=== PATIENT | female | born 1960 | race Caucasian/White ===

== ENCOUNTER 2021-03-21 09:33 | Inpatient (IN) | payer OTHER ==
[2021-03-21] MEDS ORDERED: Morphine 4 MG/ML VIAL ONE ×5 (09:52→21:13)
[2021-03-21] MEDS ORDERED: Ondansetron PF 4 MG/2 ML Vial ONE ×2 (09:52→16:12)
[2021-03-21 10:28] LABS: #Basophils 0.1 thou/uL (0.0-0.2); #Eosinphils 0.1 thou/uL (0.0-0.7); #Lymphocytes 2.1 thou/uL (1.20-3.40); #Monocytes 0.7 thou/uL (0.11-0.59); #Neutrophils 11.3 thou/uL (1.40-6.50); %Basophils 0.7 % (0.0-1.0); %Eosinophils 0.6 % (0.0-10.0); %Lymphocytes 14.9 % (21.0-51.0); %Neutrophils 78.9 % (42.0-75.0); Hemoglobin 15.7 g/dL (12.0-16.0); Mean Corpuscular HGB CONC 32.1 g/dL (32.0-36.0); Mean Corpuscular Volume 99.8 fL (78.0-98.0); Mean Platelet Volume 10.4 fL (7.4-10.4); Platelet Count 245 thou/uL (130-400); RBC Distribution Width 12.7 % (11.5-14.5); White Blood Cell (WBC) Count 14.3 thou/uL (4.8-10.8)
[2021-03-21 10:31] LABS: Actual Bicarbonate (HCO3v) 23 mEq/L (22-28); Analyzer IN Cardio ER; Base Excess -3.4 mEq/L (-2.0 to +3.0); Calcium, Ionized (venous) 1.19 mmol/L (1.16-1.32); Chloride (VBG) 101 mmol/L (98-106); Potassium (VBG) 4.11 mmol/L (3.70-5.30); Sodium 139.1 mmol/L (133-146); pH (venous) 7.33 (7.32-7.43)
[2021-03-21 10:56] LABS: ALT (SGPT) 21 U/L (8-55); AST (SGOT) 27 U/L (5-34); Albumin 4.6 g/dL (3.4-4.8); Alkaline Phosphatase 121 U/L (40-110); Anion Gap 19 mmol/L (10-20); BUN (Urea Nitrogen) 22 mg/dL (9.8-20.1); Bilirubin, Total 0.6 mg/dL (0.2-1.2); Calc. Creatinine Clearance 0 mL/min (70-130); Calcium 10.4 mg/dL (7.8-10.44); Carbon Dioxide 22 mmol/L (23-31); Chloride 101 mmol/L (98-107); Globulin 3.5 g/dL (2.4-3.5); Glucose 104 mg/dL (80-115); Potassium 4.6 mmol/L (3.5-5.1); Protein, Total 8.1 g/dL (5.8-8.1); Sodium 137 mmol/L (136-145)
[2021-03-21 11:21] LABS: Lipase 24 U/L (8-78)
[2021-03-21] MEDS ORDERED: Piperacillin/Tazobactam 3.375 GM VIAL ONE (14:19)
[2021-03-21] MEDS ORDERED: Iopamidol-370 76% 500 ML 1 ML ONE (14:51)
[2021-03-21 15:15] LABS: SARS-CoV-2 NAA Rapid Test Not Detected (NotDetected)
[2021-03-21] MEDS ORDERED: Fentanyl 100 MCG/2 ML VIAL ONE (15:44)
[2021-03-21] MEDS ORDERED: Fentanyl 250 MCG/5 ML VIAL ONE (15:49)
[2021-03-21] MEDS ORDERED: Ketamine 50 MG/ML (10ML VIAL) ONE (16:09)
[2021-03-21] MEDS ORDERED: PHENYLEPHRINE-NS 100 MCG/ML 10 ML SYRINGE ONE (16:12)
[2021-03-21] MEDS ORDERED: Dexamethasone 20 MG/5 ML VIAL ONE (16:12)
[2021-03-21] MEDS ORDERED: ePHEDrine Sulfate 50 MG/10 ML VIAL ONE (16:12)
[2021-03-21] MEDS ORDERED: Rocuronium Bromide 10 MG/ML (10ML VIAL) ONE (16:12)
[2021-03-21] MEDS ORDERED: Succinylcholine 200 MG/10 ml SYRINGE FS ONE (16:12)
[2021-03-21] MEDS ORDERED: PROPOFOL 200 MG/20 ML VIAL ONE (16:12)
[2021-03-21] MEDS ORDERED: Phenylephrine 10 MG/ML VIAL ONE (18:48)
[2021-03-21] MEDS ORDERED: Bupivacaine 0.25% HCL 30 ML VIAL ONE (18:54)
[2021-03-21] MEDS ORDERED: EPINEPHrine 1 MG/ML AMP ONE (18:54)
[2021-03-21] MEDS ORDERED: Ketorolac Tromethamine 30 MG/ML VIAL IVP PRN (19:43)
[2021-03-21] MEDS ORDERED: Promethazine HCl 25 MG/ML VIAL IM PRN (19:43)
[2021-03-21] MEDS ORDERED: diphenhydrAMINE 50 MG/ML VIAL IVP PRN (19:43)
[2021-03-21] MEDS ORDERED: fentaNYL Citrate/PF 2,000 MCG in Sodium Chloride 0.9% 60 ML IV PRN (19:43)
[2021-03-21] MEDS ORDERED: Ondansetron HCl/PF 4 MG/2 ML Vial IVP PRN (19:43)
[2021-03-21] MEDS ORDERED: Zolpidem Tartrate 5 MG TAB PO PRN (19:43)
[2021-03-21] MEDS ORDERED: Naloxone HCl 0.4 mg/ml Vial IV PRN (19:43)
[2021-03-21] MEDS ORDERED: Promethazine HCl 25 MG/ML VIAL SLOW IVP PRN (19:43)
[2021-03-21] MEDS ORDERED: diphenhydrAMINE 50 MG/ML VIAL IM PRN (19:43)
[2021-03-21] MEDS ORDERED: diphenhydrAMINE 25 MG CAP PO PRN (19:43)
[2021-03-21] MEDS ORDERED: Communication Order-Pharmacy FS SCH (19:45)
[2021-03-21] MEDS ORDERED: SUGAMMADEX SODIUM 200 MG/2 ML VIAL ONE (19:46)
[2021-03-21] MEDS ORDERED: Albumin 5% 500 ML ONE (20:17)
[2021-03-21] MEDS ORDERED: Morphine 4 MG/ML VIAL SLOW IVP PRN (20:26)
[2021-03-21] MEDS ORDERED: Morphine 2 MG/ML VIAL SLOW IVP PRN (20:26)
[2021-03-21] MEDS ORDERED: Ondansetron PF 4 MG/2 ML Vial IVP PRN (20:26)
[2021-03-21] MEDS ORDERED: Fentanyl CADD 100 ML ONE (20:49)
[2021-03-21] MEDS: D5 1/2 NS w/20 mEq KCL 1,000 ML IV SCH (20:59)
[2021-03-21] MEDS ORDERED: Fentanyl 100 MCG/2 ML VIAL SLOW IVP PRN (21:34)
[2021-03-21] MEDS ORDERED: Fentanyl 100 MCG/2 ML VIAL SLOW IVP SCH (21:45)
[2021-03-21] MEDS: Famotidine/PF 20 mg/2ml Vial SLOW IVP SCH (21:52)
[2021-03-21] MEDS: Enoxaparin Sodium 40 MG/0.4 ML SYRINGE SC SCH (21:52)
[2021-03-22] MEDS: Ondansetron PF 4 MG/2 ML Vial IVP PRN (01:28)
[2021-03-22] MEDS: Promethazine HCl 25 MG/ML VIAL IM PRN ×2 (04:57→10:08)
[2021-03-22] MEDS: D5 1/2 NS w/20 mEq KCL 1,000 ML IV SCH (04:57)
[2021-03-22 05:07] LABS: Anion Gap 17 mmol/L (10-20); BUN (Urea Nitrogen) 26 mg/dL (9.8-20.1); Calc. Creatinine Clearance 40 mL/min (70-130); Calcium 7.9 mg/dL (7.8-10.44); Carbon Dioxide 17 mmol/L (23-31); Chloride 106 mmol/L (98-107); Glucose 254 mg/dL (80-115); Potassium 4.8 mmol/L (3.5-5.1); Sodium 135 mmol/L (136-145)
[2021-03-22 05:19] LABS: Band 48 % (5-11); Hemoglobin 12.6 g/dL (12.0-16.0); Hypochromia SLIGHT = 6-15 cells (100X) (0-5/hpf); Lymphocytes 4 % (21-51); MDiff Complete? YES; Mean Corpuscular HGB CONC 31.7 g/dL (32.0-36.0); Mean Platelet Volume 10.5 fL (7.4-10.4); Monocytes 6 % (0-10); Neutrophil 42 % (42-75); Platelet Count 193 thou/uL (130-400); Platelet Morphology Comment Appears Adequate; RBC Distribution Width 12.7 % (11.5-14.5); Red Blood Cell (RBC) Count 3.94 mill/uL (4.20-5.40); Reflex for Review?? YES; White Blood Cell (WBC) Count 16.8 thou/uL (4.8-10.8)
[2021-03-22] MEDS ORDERED: Sodium Chloride 0.9% 1,000 ML IV SCH (07:00)
[2021-03-22] MEDS: Sodium Chloride 0.45% 1,000 ML IV SCH ×3 (09:25→20:34)
[2021-03-22] MEDS: Ketorolac Tromethamine 30 MG/ML VIAL IVP PRN ×2 (10:07→20:25)
[2021-03-22] MEDS: Famotidine/PF 20 mg/2ml Vial SLOW IVP SCH ×2 (10:08→20:26)
[2021-03-22] MEDS: Enoxaparin Sodium 40 MG/0.4 ML SYRINGE SC SCH (20:25)
[2021-03-23] MEDS: Sodium Chloride 0.45% 1,000 ML IV SCH (04:04)
[2021-03-23 05:24] LABS: Actual Bicarbonate (HCO3a) 14.2 mEq/L (22-28); CO2 Tension 33.6 mmHg (35.0-45.0); Calcium, Ionized (arterial) 0.88 mmol/L (1.12-1.30); Carboxyhemoglobin (COHb) 0.6 gm% (0.0-3.0); Hemoglobin (Hb) 11.9 g/dL (12.0-16.0); O2 Tension (PaO2), arterial 72.3 mmHg (> 80.0); Potassium - ABG Lab 5.38 mmol/L (3.70-5.30)
[2021-03-23 05:26] LABS: Puncture Site RBA; pH, Arterial 7.25 (7.35-7.45)
[2021-03-23 05:27] LABS: Hemoglobin 11.2 g/dL (12.0-16.0); Mean Corpuscular HGB CONC 31.6 g/dL (32.0-36.0); Mean Corpuscular Hemoglobin 32.2 pg (27.0-31.0); Mean Platelet Volume 10.9 fL (7.4-10.4); Platelet Count 177 thou/uL (130-400); RBC Distribution Width 12.9 % (11.5-14.5); Red Blood Cell (RBC) Count 3.47 mill/uL (4.20-5.40); White Blood Cell (WBC) Count 16.4 thou/uL (4.8-10.8)
[2021-03-23 05:54] LABS: Band 47 % (5-11); Large Platelets SLIGHT; Lymphocytes 8 % (21-51); MDiff Complete? YES; Metamyelocyte 3 % (0-0); Monocytes 2 % (0-10); Neutrophil 40 % (42-75); Platelet Morphology Comment Appears Adequate
[2021-03-23 05:55] LABS: Anion Gap 18 mmol/L (10-20); BUN (Urea Nitrogen) 42 mg/dL (9.8-20.1); Calc. Creatinine Clearance 20 mL/min (70-130); Calcium 6.4 mg/dL (7.8-10.44); Carbon Dioxide 15 mmol/L (23-31); Chloride 106 mmol/L (98-107); Glucose 140 mg/dL (80-115); Potassium 5.5 mmol/L (3.5-5.1); Sodium 133 mmol/L (136-145)
[2021-03-23] MEDS ORDERED: Lactated Ringer's 1,000 ML IV SCH ×3 (06:15→10:00)
[2021-03-23] MEDS ORDERED: Racepinephrine 2.25% 0.5 ML NEB NEB SCH (08:45)
[2021-03-23] MEDS ORDERED: Albumin 5% 0 ML ONE (08:51)
[2021-03-23] MEDS ORDERED: Lactated Ringer's 500 ML IV SCH ×2 (09:00→09:30)
[2021-03-23] MEDS ORDERED: Potassium Phosphate 15 MMOL in Sodium Chloride 0.9% 250 ML 250 ML IVPB PRN (09:18)
[2021-03-23] MEDS ORDERED: Magnesium 2 GM/50 ML 2 GM in Premix Bag 1 BAG IVPB PRN (09:18)
[2021-03-23] MEDS ORDERED: Electrolyte Replacement Protocol 1 EACH FS SCH (09:30)
[2021-03-23] MEDS ORDERED: Dextrose 5%-Lactated Ringers 1,000 ML IV SCH (09:30)
[2021-03-23] MEDS: Famotidine/PF 20 mg/2ml Vial SLOW IVP SCH (09:50)
[2021-03-23] MEDS: Piperacillin/Tazobactam 3.375 GM in Sodium Chloride 0.9% 100 ML IVPB SCH ×2 (09:53→17:08)
[2021-03-23] MEDS: Meropenem 500 MG in Sodium Chloride 0.9% 100 ML IVPB SCH ×2 (10:24→21:05)
[2021-03-23] MEDS: Norepinephrine 16 MG in Dextrose 5% in Water 234 ML IVPB SCH (10:45)
[2021-03-23 11:17] LABS: Troponin I 0.081 ng/mL (< 0.028)
[2021-03-23 11:27] LABS: Chloride 102 mmol/L (98-107); Potassium 5.3 mmol/L (3.5-5.1); Sodium 127 mmol/L (136-145)
[2021-03-23 11:28] LABS: Calcium 6.4 mg/dL (7.8-10.44); Glucose 138 mg/dL (80-115)
[2021-03-23 11:30] LABS: Anion Gap 15 mmol/L (10-20); Carbon Dioxide 15 mmol/L (23-31)
[2021-03-23 11:32] LABS: Calc. Creatinine Clearance 20 mL/min (70-130)
[2021-03-23 11:33] LABS: BUN (Urea Nitrogen) 41 mg/dL (9.8-20.1)
[2021-03-23] MEDS ORDERED: Morphine 4 MG/ML VIAL ONE (12:05)
[2021-03-23] MEDS ORDERED: Morphine 4 MG/ML VIAL SLOW IVP PRN (12:19)
[2021-03-23] MEDS: Ondansetron PF 4 MG/2 ML Vial IVP PRN (12:27)
[2021-03-23] MEDS ORDERED: Calcium Chloride 1 GM/10 ML Abboject SYRINGE ONE (12:47)
[2021-03-23] MEDS: Racepinephrine 2.25% 0.5 ML NEB NEB SCH ×2 (12:48→18:15)
[2021-03-23] MEDS ORDERED: Magnesium 2 GM/50 ML 2 GM in Premix Bag 1 BAG IVPB SCH (13:45)
[2021-03-23 14:06] LABS: Bilirubin Moderate (Negative); Blood, Urine Large (Negative); Glucose, Urine (Dipstick) 100 mg/dL (Negative); Ketone, Urine Trace mg/dL (Negative); Leukocyte Trace (Negative); Nitrite Negative (Negative); Protein, Urine (Dipstick) > or equal to 300 mg/dL (Neg-Trace)
[2021-03-23 14:12] LABS: Clarity Turbid (Clear)
[2021-03-23 14:14] LABS: Specific Gravity, Urine 1.031 (1.002-1.036)
[2021-03-23 14:17] LABS: RBC/HPF Greater than 50 HPF (0-3)
[2021-03-23 14:18] LABS: Bacteria/HPF 1+ HPF (None Seen)
[2021-03-23 14:19] LABS: Urine Culture Reflex No No
[2021-03-23 14:20] LABS: Creatinine, Urine 125.43 mg/dL (47-110)
[2021-03-23] MEDS: Sodium Bicarbonate 150 MEQ in Dextrose 5% in Water 1,000 ML IV SCH ×2 (14:39→18:32)
[2021-03-23 18:20] LABS: Troponin I 0.178 ng/mL (< 0.028)
[2021-03-23 19:07] LABS: Albumin 3.4 g/dL (3.4-4.8); Anion Gap 17 mmol/L (10-20); BUN (Urea Nitrogen) 48 mg/dL (9.8-20.1); BUN/Creatinine Ratio 10.71; CK (CPK) 3055 U/L (29-168); Calc. Creatinine Clearance 18 mL/min (70-130); Calcium 6.9 mg/dL (7.8-10.44); Carbon Dioxide 16 mmol/L (23-31); Chloride 104 mmol/L (98-107); Glucose 189 mg/dL (80-115); Phosphorus 4.4 mg/dL (2.3-4.7); Potassium 5.3 mmol/L (3.5-5.1); Sodium 132 mmol/L (136-145)
[2021-03-23] MEDS ORDERED: Furosemide 100 MG/10 ML VIAL SLOW IVP SCH (19:09)
[2021-03-23] MEDS ORDERED: Sodium Bicarbonate 150 MEQ in Dextrose 5% in Water 1,000 ML IV SCH (19:10)
[2021-03-23] MEDS: Morphine 4 MG/ML VIAL SLOW IVP PRN ×3 (19:36→23:12)
[2021-03-23] MEDS ORDERED: Calcium Gluconate 13.8 MEQ in Sodium Chloride 0.9% 250 ML 250 ML IVPB SCH (20:00)
[2021-03-23] MEDS ORDERED: Lorazepam 2 MG/ML VIAL SLOW IVP PRN (20:26)
[2021-03-23] MEDS: Enoxaparin Sodium 30 MG/0.3 ML SYRINGE SC SCH (21:29)
[2021-03-23 22:43] LABS: Anion Gap 17 mmol/L (10-20); BUN (Urea Nitrogen) 48 mg/dL (9.8-20.1); Calc. Creatinine Clearance 18 mL/min (70-130); Calcium 7.1 mg/dL (7.8-10.44); Carbon Dioxide 21 mmol/L (23-31); Chloride 100 mmol/L (98-107); Glucose 182 mg/dL (80-115); Potassium 4.3 mmol/L (3.5-5.1); Sodium 134 mmol/L (136-145)
[2021-03-24] MEDS: Piperacillin/Tazobactam 3.375 GM in Sodium Chloride 0.9% 100 ML IVPB SCH ×5 (00:14→23:45)
[2021-03-24] MEDS: Morphine 4 MG/ML VIAL SLOW IVP PRN ×2 (01:27→03:50)
[2021-03-24 01:58] LABS: Troponin I 0.222 ng/mL (< 0.028)
[2021-03-24 04:26] LABS: CK (CPK) 2716 U/L (29-168); Phosphorus 3.8 mg/dL (2.3-4.7)
[2021-03-24 04:27] LABS: Anion Gap 16 mmol/L (10-20); BUN (Urea Nitrogen) 46 mg/dL (9.8-20.1); Calc. Creatinine Clearance 17 mL/min (70-130); Calcium 6.6 mg/dL (7.8-10.44); Carbon Dioxide 25 mmol/L (23-31); Chloride 95 mmol/L (98-107); Glucose 179 mg/dL (80-115); Magnesium 1.6 mg/dL (1.6-2.6); Potassium 4.2 mmol/L (3.5-5.1); Sodium 132 mmol/L (136-145)
[2021-03-24 04:30] LABS: Band 62 % (5-11); Hemoglobin 9.7 g/dL (12.0-16.0); Hypochromia SLIGHT = 6-15 cells (100X) (0-5/hpf); Lymphocytes 8 % (21-51); MDiff Complete? YES; Mean Corpuscular HGB CONC 32.5 g/dL (32.0-36.0); Mean Corpuscular Hemoglobin 32.2 pg (27.0-31.0); Mean Corpuscular Volume 99.1 fL (78.0-98.0); Mean Platelet Volume 10.7 fL (7.4-10.4); Monocytes 4 % (0-10); Neutrophil 26 % (42-75); Platelet Count 158 thou/uL (130-400); Platelet Morphology Comment Appears Adequate; RBC Distribution Width 12.6 % (11.5-14.5); Red Blood Cell (RBC) Count 3.02 mill/uL (4.20-5.40); White Blood Cell (WBC) Count 14.1 thou/uL (4.8-10.8)
[2021-03-24] MEDS ORDERED: Furosemide 100 MG/10 ML VIAL SLOW IVP SCH (04:30)
[2021-03-24 06:48] LABS: Actual Bicarbonate (HCO3a) 23.1 mEq/L (22-28); CO2 Tension 40.6 mmHg (35.0-45.0); Calcium, Ionized (arterial) 0.81 mmol/L (1.12-1.30); Carboxyhemoglobin (COHb) 0.3 gm% (0.0-3.0); Hemoglobin (Hb) 10.9 g/dL (12.0-16.0); O2 Tension (PaO2), arterial 96.9 mmHg (> 80.0); Potassium - ABG Lab 4.11 mmol/L (3.70-5.30); Puncture Site RBA; pH, Arterial 7.37 (7.35-7.45)
[2021-03-24] MEDS: Racepinephrine 2.25% 0.5 ML NEB NEB SCH (06:52)
[2021-03-24] MEDS ORDERED: Magnesium 2 GM/50 ML 2 GM in Premix Bag 1 BAG IVPB SCH (07:00)
[2021-03-24] MEDS ORDERED: Sodium Bicarbonate 150 MEQ in Dextrose 5% in Water 1,000 ML IV SCH (07:45)
[2021-03-24] MEDS ORDERED: Calcium Gluconate 13.8 MEQ in Sodium Chloride 0.9% 250 ML 250 ML IVPB SCH (08:00)
[2021-03-24] MEDS: Famotidine/PF 20 mg/2ml Vial SLOW IVP SCH (08:19)
[2021-03-24] MEDS ORDERED: Vancomycin 1 GM in Premix Bag 1 BAG IVPB SCH ×2 (09:00→10:00)
[2021-03-24] MEDS ORDERED: Famotidine/PF 20 mg/2ml Vial SLOW IVP SCH (09:00)
[2021-03-24] MEDS ORDERED: Sodium Chloride 0.45% 500 ML IV SCH (09:45)
[2021-03-24] MEDS ORDERED: HOLD VANCOMYCIN FOR LEVEL >20 FS SCH (10:00)
[2021-03-24] MEDS ORDERED: Vancomycin HCl 750 MG in Sodium Chloride 0.9% 250 ML 250 ML IVPB SCH (10:00)
[2021-03-24] MEDS ORDERED: Vancomycin HCl 500 MG in Sodium Chloride 0.9% 100 ML IVPB SCH (10:00)
[2021-03-24] MEDS ORDERED: VANCOMYCIN 1.25 GM/250 ML BAG 1.25 GM in Premix Bag 1 BAG IVPB SCH (10:00)
[2021-03-24] MEDS: Meropenem 500 MG in Sodium Chloride 0.9% 100 ML IVPB SCH ×2 (10:11→21:58)
[2021-03-24] MEDS ORDERED: Furosemide 40 MG/4 ML VIAL ONE (11:46)
[2021-03-24] MEDS: Norepinephrine 16 MG in Dextrose 5% in Water 234 ML IVPB SCH (14:43)
[2021-03-24 14:56] LABS: Albumin 2.8 g/dL (3.4-4.8); Anion Gap 19 mmol/L (10-20); BUN (Urea Nitrogen) 52 mg/dL (9.8-20.1); BUN/Creatinine Ratio 10.44; Calc. Creatinine Clearance 16 mL/min (70-130); Calcium 6.7 mg/dL (7.8-10.44); Carbon Dioxide 25 mmol/L (23-31); Chloride 93 mmol/L (98-107); Glucose 155 mg/dL (80-115); Phosphorus 4.3 mg/dL (2.3-4.7); Potassium 4.3 mmol/L (3.5-5.1); Sodium 133 mmol/L (136-145)
[2021-03-24 20:56] LABS: Albumin 2.9 g/dL (3.4-4.8); Anion Gap 21 mmol/L (10-20); BUN (Urea Nitrogen) 54 mg/dL (9.8-20.1); BUN/Creatinine Ratio 10.17; Calc. Creatinine Clearance 15 mL/min (70-130); Calcium 6.6 mg/dL (7.8-10.44); Carbon Dioxide 23 mmol/L (23-31); Chloride 94 mmol/L (98-107); Glucose 142 mg/dL (80-115); Phosphorus 4.6 mg/dL (2.3-4.7); Potassium 4.6 mmol/L (3.5-5.1); Sodium 133 mmol/L (136-145)
[2021-03-24] MEDS: Enoxaparin Sodium 30 MG/0.3 ML SYRINGE SC SCH (21:57)
[2021-03-24] MEDS: Albumin 25% 25 GM/100 ML BOT IVPB SCH (23:46)
[2021-03-25] MEDS: Norepinephrine 16 MG in Dextrose 5% in Water 234 ML IVPB SCH (05:08)
[2021-03-25] MEDS: Piperacillin/Tazobactam 3.375 GM in Sodium Chloride 0.9% 100 ML IVPB SCH (05:09)
[2021-03-25] MEDS: Albumin 25% 25 GM/100 ML BOT IVPB SCH ×2 (05:09→11:18)
[2021-03-25 05:43] LABS: Anion Gap 20 mmol/L (10-20); BUN (Urea Nitrogen) 57 mg/dL (9.8-20.1); CK (CPK) 1142 U/L (29-168); Calc. Creatinine Clearance 14 mL/min (70-130); Calcium 6.6 mg/dL (7.8-10.44); Carbon Dioxide 25 mmol/L (23-31); Chloride 93 mmol/L (98-107); Glucose 139 mg/dL (80-115); Magnesium 2.1 mg/dL (1.6-2.6); Phosphorus 5.1 mg/dL (2.3-4.7); Potassium 4.4 mmol/L (3.5-5.1); Sodium 134 mmol/L (136-145)
[2021-03-25 06:35] LABS: Actual Bicarbonate (HCO3a) 23.3 mEq/L (22-28); Base Excess (BEa) -1.7 mEq/L (-2.0 to +3.0); CO2 Tension 40.8 mmHg (35.0-45.0); Calcium, Ionized (arterial) 0.79 mmol/L (1.12-1.30); Carboxyhemoglobin (COHb) 0.3 gm% (0.0-3.0); Hemoglobin (Hb) 9.5 g/dL (12.0-16.0); Potassium - ABG Lab 4.38 mmol/L (3.70-5.30); pH, Arterial 7.38 (7.35-7.45)
[2021-03-25 06:50] LABS: O2 Tension (PaO2), arterial 79.3 mmHg (> 80.0); Puncture Site RBA
[2021-03-25] MEDS: Famotidine/PF 20 mg/2ml Vial SLOW IVP SCH (09:19)
[2021-03-25 09:43] LABS: Vancomycin, Random 10.6 ug/mL (See Comment)
[2021-03-25] MEDS: Lactated Ringer's 1,000 ML IV SCH ×3 (10:56→19:45)
[2021-03-25] MEDS: Meropenem 500 MG in Sodium Chloride 0.9% 100 ML IVPB SCH ×2 (11:07→20:38)
[2021-03-25 11:53] LABS: Mean Corpuscular HGB CONC 32.7 g/dL (32.0-36.0); Mean Corpuscular Hemoglobin 31.9 pg (27.0-31.0); Mean Corpuscular Volume 97.6 fL (78.0-98.0); Platelet Count 171 thou/uL (130-400); RBC Distribution Width 12.5 % (11.5-14.5); Red Blood Cell (RBC) Count 2.83 mill/uL (4.20-5.40); White Blood Cell (WBC) Count 12.6 thou/uL (4.8-10.8)
[2021-03-25 12:26] LABS: Band 35 % (5-11); MDiff Complete? YES; Metamyelocyte 1 % (0-0); Monocytes 7 % (0-10); Myelocyte 1 % (0-0); Neutrophil 56 % (42-75); Platelet Morphology Comment Appears Adequate; Polychromasia SLIGHT = 2-3 cells (100X) (0-2/hpf); Reflex for Review?? NO; Vacuoles MODERATE
[2021-03-25] MEDS ORDERED: VANCOMYCIN 1.25 GM/250 ML BAG 1.25 GM in Premix Bag 1 BAG IVPB SCH (13:00)
[2021-03-25] MEDS: Morphine 4 MG/ML VIAL SLOW IVP PRN ×3 (14:02→23:35)
[2021-03-25] MEDS: Piperacillin/Tazobactam 2.25 GM in Sodium Chloride 0.9% 100 ML IVPB SCH ×2 (14:03→21:48)
[2021-03-25] MEDS: Budesonide 0.5 MG/2 ML NEB NEB SCH (18:21)
[2021-03-25] MEDS: Enoxaparin Sodium 30 MG/0.3 ML SYRINGE SC SCH (20:39)
[2021-03-26] MEDS: Norepinephrine 16 MG in Dextrose 5% in Water 234 ML IVPB SCH (00:43)
[2021-03-26] MEDS: Lactated Ringer's 1,000 ML IV SCH ×4 (00:50→17:00)
[2021-03-26] MEDS: Morphine 4 MG/ML VIAL SLOW IVP PRN ×6 (03:15→20:00)
[2021-03-26 04:13] LABS: Anion Gap 23 mmol/L (10-20); BUN (Urea Nitrogen) 55 mg/dL (9.8-20.1); CK (CPK) 476 U/L (29-168); Calc. Creatinine Clearance 16 mL/min (70-130); Calcium 7.7 mg/dL (7.8-10.44); Carbon Dioxide 26 mmol/L (23-31); Chloride 96 mmol/L (98-107); Glucose 120 mg/dL (80-115); Potassium 3.7 mmol/L (3.5-5.1); Sodium 141 mmol/L (136-145)
[2021-03-26 04:47] LABS: Band 41 % (5-11); Eosinophils 2 % (0-10); Hemoglobin 9.3 g/dL (12.0-16.0); Lymphocytes 5 % (21-51); MDiff Complete? YES; Mean Corpuscular HGB CONC 33.5 g/dL (32.0-36.0); Mean Corpuscular Hemoglobin 32.7 pg (27.0-31.0); Mean Corpuscular Volume 97.6 fL (78.0-98.0); Mean Platelet Volume 11.3 fL (7.4-10.4); Monocytes 4 % (0-10); Neutrophil 48 % (42-75); Nucleated RBC 1 % (0); Platelet Count 160 thou/uL (130-400); RBC Distribution Width 12.8 % (11.5-14.5); Red Blood Cell (RBC) Count 2.84 mill/uL (4.20-5.40); White Blood Cell (WBC) Count 15.4 thou/uL (4.8-10.8)
[2021-03-26] MEDS: Piperacillin/Tazobactam 2.25 GM in Sodium Chloride 0.9% 100 ML IVPB SCH (05:12)
[2021-03-26] MEDS: Budesonide 0.5 MG/2 ML NEB NEB SCH ×2 (07:22→18:36)
[2021-03-26] MEDS: Famotidine/PF 20 mg/2ml Vial SLOW IVP SCH (07:46)
[2021-03-26] MEDS: Meropenem 500 MG in Sodium Chloride 0.9% 100 ML IVPB SCH ×2 (11:15→20:55)
[2021-03-26] MEDS ORDERED: VANCOMYCIN 1.25 GM/250 ML BAG 1.25 GM in Premix Bag 1 BAG IVPB SCH (13:00)
[2021-03-26 15:30] LABS: Albumin 3.2 g/dL (3.4-4.8); Anion Gap 22 mmol/L (10-20); BUN (Urea Nitrogen) 54 mg/dL (9.8-20.1); BUN/Creatinine Ratio 12.59; Calc. Creatinine Clearance 19 mL/min (70-130); Calcium 8.1 mg/dL (7.8-10.44); Carbon Dioxide 27 mmol/L (23-31); Chloride 96 mmol/L (98-107); Glucose 101 mg/dL (80-115); Phosphorus 6.8 mg/dL (2.3-4.7); Potassium 3.7 mmol/L (3.5-5.1); Sodium 141 mmol/L (136-145)
[2021-03-26] MEDS: Mometasone 200 MCG/Formoterol 5 MCG 120 PUFF INHALER INH SCH (18:38)
[2021-03-26] MEDS: Enoxaparin Sodium 30 MG/0.3 ML SYRINGE SC SCH (20:55)
[2021-03-26] MEDS: methylPREDNISolone Sod Succ 40 MG VIAL IVP SCH (20:55)
[2021-03-27] MEDS: Morphine 4 MG/ML VIAL SLOW IVP PRN ×3 (04:15→22:05)
[2021-03-27 04:55] LABS: Phosphorus 7.1 mg/dL (2.3-4.7)
[2021-03-27 05:00] LABS: Anion Gap 23 mmol/L (10-20); BUN (Urea Nitrogen) 56 mg/dL (9.8-20.1); CK (CPK) 154 U/L (29-168); Calc. Creatinine Clearance 22 mL/min (70-130); Calcium 8.5 mg/dL (7.8-10.44); Carbon Dioxide 26 mmol/L (23-31); Chloride 97 mmol/L (98-107); Glucose 122 mg/dL (80-115); Magnesium 1.8 mg/dL (1.6-2.6); Potassium 3.9 mmol/L (3.5-5.1); Sodium 142 mmol/L (136-145)
[2021-03-27 05:04] LABS: Band 48 % (5-11); Hemoglobin 9.2 g/dL (12.0-16.0); Hypochromia SLIGHT = 6-15 cells (100X) (0-5/hpf); Lymphocytes 2 % (21-51); MDiff Complete? YES; Mean Corpuscular HGB CONC 32.3 g/dL (32.0-36.0); Mean Corpuscular Hemoglobin 31.7 pg (27.0-31.0); Mean Corpuscular Volume 97.9 fL (78.0-98.0); Mean Platelet Volume 11.7 fL (7.4-10.4); Monocytes 3 % (0-10); Neutrophil 46 % (42-75); Platelet Count 170 thou/uL (130-400); Platelet Morphology Comment Appears Adequate; RBC Distribution Width 12.8 % (11.5-14.5); Red Blood Cell (RBC) Count 2.89 mill/uL (4.20-5.40); White Blood Cell (WBC) Count 20.7 thou/uL (4.8-10.8)
[2021-03-27] MEDS: Lactated Ringer's 1,000 ML IV SCH ×3 (06:04→20:53)
[2021-03-27] MEDS: Budesonide 0.5 MG/2 ML NEB NEB SCH ×2 (07:16→18:29)
[2021-03-27] MEDS: Mometasone 200 MCG/Formoterol 5 MCG 120 PUFF INHALER INH SCH ×2 (07:17→18:30)
[2021-03-27] MEDS: Famotidine/PF 20 mg/2ml Vial SLOW IVP SCH (09:04)
[2021-03-27] MEDS: Meropenem 500 MG in Sodium Chloride 0.9% 100 ML IVPB SCH ×2 (09:05→20:54)
[2021-03-27] MEDS: methylPREDNISolone Sod Succ 40 MG VIAL IVP SCH ×2 (09:05→20:55)
[2021-03-27] MEDS ORDERED: Iopamidol 370 76% 50 ML VIAL FS ONE (13:42)
[2021-03-27] MEDS: Lidocaine 5% Patch TD SCH (16:52)
[2021-03-27] MEDS: Enoxaparin Sodium 30 MG/0.3 ML SYRINGE SC SCH (20:54)
[2021-03-27] MEDS ORDERED: Lorazepam 2 MG/ML VIAL SLOW IVP SCH (22:30)
[2021-03-28] MEDS: Lactated Ringer's 1,000 ML IV SCH ×2 (02:07→09:50)
[2021-03-28 05:03] LABS: Anion Gap 19 mmol/L (10-20); BUN (Urea Nitrogen) 64 mg/dL (9.8-20.1); CK (CPK) 76 U/L (29-168); Calc. Creatinine Clearance 31 mL/min (70-130); Calcium 9.1 mg/dL (7.8-10.44); Carbon Dioxide 28 mmol/L (23-31); Chloride 100 mmol/L (98-107); Glucose 158 mg/dL (80-115); Potassium 3.4 mmol/L (3.5-5.1); Sodium 144 mmol/L (136-145)
[2021-03-28 05:09] LABS: Hemoglobin 9.5 g/dL (12.0-16.0); Mean Corpuscular HGB CONC 33.5 g/dL (32.0-36.0); Mean Corpuscular Hemoglobin 33.3 pg (27.0-31.0); Mean Corpuscular Volume 99.2 fL (78.0-98.0); Mean Platelet Volume 11.6 fL (7.4-10.4); Platelet Count 187 thou/uL (130-400); RBC Distribution Width 12.8 % (11.5-14.5); Red Blood Cell (RBC) Count 2.85 mill/uL (4.20-5.40); White Blood Cell (WBC) Count 21.2 thou/uL (4.8-10.8)
[2021-03-28 05:17] LABS: Band 1 % (5-11); Eosinophils 1 % (0-10); MDiff Complete? YES; Metamyelocyte 2 % (0-0); Monocytes 1 % (0-10); Neutrophil 95 % (42-75); Nucleated RBC 1 % (0); Platelet Morphology Comment Appears Adequate
[2021-03-28] MEDS: Transdermal Patch Removal TOP SCH (06:12)
[2021-03-28] MEDS: Mometasone 200 MCG/Formoterol 5 MCG 120 PUFF INHALER INH SCH ×2 (07:09→21:48)
[2021-03-28] MEDS: Budesonide 0.5 MG/2 ML NEB NEB SCH ×3 (07:09→23:52)
[2021-03-28] MEDS ORDERED: Labetalol HCl 100 MG/20 ML VIAL SLOW IVP PRN (08:27)
[2021-03-28] MEDS ORDERED: methylPREDNISolone Sod Succ 40 MG VIAL IVP SCH (09:00)
[2021-03-28] MEDS: Famotidine/PF 20 mg/2ml Vial SLOW IVP SCH (09:47)
[2021-03-28] MEDS: Meropenem 500 MG in Sodium Chloride 0.9% 100 ML IVPB SCH ×2 (09:47→21:06)
[2021-03-28 11:02] LABS: Phosphorus 5.2 mg/dL (2.3-4.7)
[2021-03-28] MEDS: hydrALAZINE 20 MG/ML VIAL SLOW IVP PRN (11:15)
[2021-03-28] MEDS ORDERED: Albuterol Sulfate 2.5 mg/3 ml Neb NEB PRN (12:10)
[2021-03-28] MEDS ORDERED: Magnesium 2 GM/50 ML 2 GM in Premix Bag 1 BAG IVPB SCH (12:15)
[2021-03-28] MEDS: Morphine 4 MG/ML VIAL SLOW IVP PRN ×2 (12:55→22:11)
[2021-03-28] MEDS ORDERED: Potassium Chloride 20 MEQ in Premix Bag 1 BAG IVPB SCH (13:15)
[2021-03-28 13:16] LABS: Magnesium 1.7 mg/dL (1.6-2.6); Phosphorus 4.8 mg/dL (2.3-4.7)
[2021-03-28] MEDS ORDERED: Furosemide 40 MG/4 ML VIAL IVP SCH (14:30)
[2021-03-28] MEDS: methylPREDNISolone Sod Succ 40 MG VIAL IVP SCH ×2 (15:06→21:06)
[2021-03-28] MEDS ORDERED: Lactated Ringer's 1,000 ML IV SCH (15:44)
[2021-03-28] MEDS: Lidocaine 5% Patch TD SCH (17:04)
[2021-03-28] MEDS: Enoxaparin Sodium 30 MG/0.3 ML SYRINGE SC SCH (21:06)
[2021-03-29 04:17] LABS: Anion Gap 16 mmol/L (10-20); BUN (Urea Nitrogen) 66 mg/dL (9.8-20.1); Calc. Creatinine Clearance 43 mL/min (70-130); Calcium 9.1 mg/dL (7.8-10.44); Carbon Dioxide 33 mmol/L (23-31); Chloride 103 mmol/L (98-107); Glucose 184 mg/dL (80-115); Potassium 3.3 mmol/L (3.5-5.1); Sodium 149 mmol/L (136-145)
[2021-03-29 04:23] LABS: Phosphorus 3.3 mg/dL (2.3-4.7)
[2021-03-29 04:34] LABS: Band 6 % (5-11); Hemoglobin 9.8 g/dL (12.0-16.0); Lymphocytes 2 % (21-51); MDiff Complete? YES; Mean Corpuscular HGB CONC 32.6 g/dL (32.0-36.0); Mean Corpuscular Hemoglobin 32.1 pg (27.0-31.0); Mean Corpuscular Volume 98.4 fL (78.0-98.0); Mean Platelet Volume 11.4 fL (7.4-10.4); Monocytes 8 % (0-10); Neutrophil 84 % (42-75); Platelet Count 202 thou/uL (130-400); RBC Distribution Width 12.9 % (11.5-14.5); Red Blood Cell (RBC) Count 3.05 mill/uL (4.20-5.40); White Blood Cell (WBC) Count 21.8 thou/uL (4.8-10.8)
[2021-03-29] MEDS: Transdermal Patch Removal TOP SCH (05:12)
[2021-03-29] MEDS: Morphine 4 MG/ML VIAL SLOW IVP PRN ×2 (06:17→14:26)
[2021-03-29] MEDS: Mometasone 200 MCG/Formoterol 5 MCG 120 PUFF INHALER INH SCH ×2 (07:18→18:41)
[2021-03-29] MEDS: Budesonide 0.5 MG/2 ML NEB NEB SCH ×4 (07:18→22:41)
[2021-03-29] MEDS: methylPREDNISolone Sod Succ 40 MG VIAL IVP SCH (07:34)
[2021-03-29] MEDS ORDERED: Potassium Bicarbonate/Cit Ac 20 MEQ TAB PO SCH (08:15)
[2021-03-29] MEDS: Lactated Ringer's 1,000 ML IV SCH (09:36)
[2021-03-29] MEDS: Dextrose 5% in Water 1,000 ML IV SCH ×2 (09:37→20:50)
[2021-03-29] MEDS: Famotidine/PF 20 mg/2ml Vial SLOW IVP SCH (09:38)
[2021-03-29] MEDS: Meropenem 500 MG in Sodium Chloride 0.9% 100 ML IVPB SCH ×2 (09:40→20:49)
[2021-03-29] MEDS ORDERED: Furosemide 40 MG/4 ML VIAL SLOW IVP SCH (10:45)
[2021-03-29] MEDS ORDERED: Potassium Chloride 40 MEQ in Premix Bag 1 BAG IVPB SCH ×2 (10:45→18:00)
[2021-03-29] MEDS: Dexamethasone 4 mg/ml Vial IVPB SCH ×3 (11:19→23:45)
[2021-03-29] MEDS: hydrALAZINE 20 MG/ML VIAL SLOW IVP PRN (14:26)
[2021-03-29] MEDS: niCARdipine 25 MG in Sodium Chloride 0.9% 250 ML 240 ML IVPB SCH ×2 (17:35→20:51)
[2021-03-29] MEDS: Lidocaine 5% Patch TD SCH (17:46)
[2021-03-29] MEDS: Furosemide 40 MG/4 ML VIAL SLOW IVP SCH (20:49)
[2021-03-29] MEDS: Enoxaparin Sodium 30 MG/0.3 ML SYRINGE SC SCH (20:49)
[2021-03-30] MEDS: Morphine 4 MG/ML VIAL SLOW IVP PRN ×2 (02:08→21:07)
[2021-03-30] MEDS: Dextrose 5% in Water 1,000 ML IV SCH ×2 (03:59→15:28)
[2021-03-30] MEDS: Transdermal Patch Removal TOP SCH (05:01)
[2021-03-30 05:49] LABS: Band 19 % (5-11); Hemoglobin 9.6 g/dL (12.0-16.0); Lymphocytes 5 % (21-51); MDiff Complete? YES; Mean Corpuscular HGB CONC 33.1 g/dL (32.0-36.0); Mean Corpuscular Hemoglobin 32.4 pg (27.0-31.0); Mean Corpuscular Volume 97.8 fL (78.0-98.0); Mean Platelet Volume 11.3 fL (7.4-10.4); Monocytes 4 % (0-10); Neutrophil 72 % (42-75); Nucleated RBC 4 % (0); Platelet Count 204 thou/uL (130-400); RBC Distribution Width 13.2 % (11.5-14.5); Red Blood Cell (RBC) Count 2.97 mill/uL (4.20-5.40)
[2021-03-30 05:54] LABS: Anion Gap 14 mmol/L (10-20); BUN (Urea Nitrogen) 63 mg/dL (9.8-20.1); Calc. Creatinine Clearance 53 mL/min (70-130); Calcium 8.8 mg/dL (7.8-10.44); Carbon Dioxide 34 mmol/L (23-31); Chloride 103 mmol/L (98-107); Glucose 276 mg/dL (80-115); Magnesium 1.7 mg/dL (1.6-2.6); Potassium 3.8 mmol/L (3.5-5.1); Sodium 147 mmol/L (136-145)
[2021-03-30] MEDS: Dexamethasone 4 mg/ml Vial IVPB SCH ×3 (06:12→18:17)
[2021-03-30] MEDS: Mometasone 200 MCG/Formoterol 5 MCG 120 PUFF INHALER INH SCH ×2 (06:45→18:30)
[2021-03-30] MEDS: Budesonide 0.5 MG/2 ML NEB NEB SCH ×4 (06:48→22:24)
[2021-03-30] MEDS: Lactated Ringer's 1,000 ML IV SCH (08:44)
[2021-03-30] MEDS: Furosemide 40 MG/4 ML VIAL SLOW IVP SCH ×2 (08:44→20:11)
[2021-03-30] MEDS: Meropenem 500 MG in Sodium Chloride 0.9% 100 ML IVPB SCH (08:44)
[2021-03-30] MEDS: Famotidine/PF 20 mg/2ml Vial SLOW IVP SCH (08:44)
[2021-03-30] MEDS: Sodium Chloride 0.45% 1,000 ML IV SCH (15:44)
[2021-03-30] MEDS: Lidocaine 5% Patch TD SCH (17:28)
[2021-03-30] MEDS: Enoxaparin Sodium 30 MG/0.3 ML SYRINGE SC SCH (20:11)
[2021-03-31] MEDS: Dexamethasone 4 mg/ml Vial IVPB SCH ×4 (00:55→17:00)
[2021-03-31 04:13] LABS: Anion Gap 15 mmol/L (10-20); BUN (Urea Nitrogen) 61 mg/dL (9.8-20.1); Calc. Creatinine Clearance 60 mL/min (70-130); Calcium 8.8 mg/dL (7.8-10.44); Carbon Dioxide 33 mmol/L (23-31); Chloride 101 mmol/L (98-107); Glucose 195 mg/dL (80-115); Potassium 3.9 mmol/L (3.5-5.1); Sodium 145 mmol/L (136-145)
[2021-03-31 04:24] LABS: Band 4 % (5-11); Hemoglobin 9.5 g/dL (12.0-16.0); Lymphocytes 2 % (21-51); MDiff Complete? YES; Mean Corpuscular HGB CONC 32.3 g/dL (32.0-36.0); Mean Corpuscular Hemoglobin 31.7 pg (27.0-31.0); Mean Platelet Volume 11.5 fL (7.4-10.4); Monocytes 2 % (0-10); Neutrophil 92 % (42-75); Platelet Count 208 thou/uL (130-400); RBC Distribution Width 13.2 % (11.5-14.5); Red Blood Cell (RBC) Count 3.01 mill/uL (4.20-5.40); White Blood Cell (WBC) Count 23.6 thou/uL (4.8-10.8)
[2021-03-31] MEDS: Sodium Chloride 0.45% 1,000 ML IV SCH ×2 (04:35→17:00)
[2021-03-31] MEDS: Transdermal Patch Removal TOP SCH (05:30)
[2021-03-31] MEDS: Budesonide 0.5 MG/2 ML NEB NEB SCH ×4 (07:32→22:42)
[2021-03-31] MEDS: Mometasone 200 MCG/Formoterol 5 MCG 120 PUFF INHALER INH SCH ×2 (07:32→18:17)
[2021-03-31] MEDS: Furosemide 40 MG/4 ML VIAL SLOW IVP SCH ×2 (07:55→21:20)
[2021-03-31] MEDS: Famotidine/PF 20 mg/2ml Vial SLOW IVP SCH (07:55)
[2021-03-31] MEDS: Morphine 4 MG/ML VIAL SLOW IVP PRN ×2 (13:50→21:32)
[2021-03-31] MEDS: Lidocaine 5% Patch TD SCH (17:00)
[2021-03-31] MEDS: Enoxaparin Sodium 30 MG/0.3 ML SYRINGE SC SCH (21:20)
[2021-04-01] MEDS: Dexamethasone 4 mg/ml Vial IVPB SCH ×2 (01:04→06:19)
[2021-04-01 04:08] LABS: Anion Gap 12 mmol/L (10-20); BUN (Urea Nitrogen) 57 mg/dL (9.8-20.1); Calc. Creatinine Clearance 68 mL/min (70-130); Calcium 8.6 mg/dL (7.8-10.44); Carbon Dioxide 36 mmol/L (23-31); Chloride 101 mmol/L (98-107); Glucose 214 mg/dL (80-115); Potassium 3.6 mmol/L (3.5-5.1); Sodium 145 mmol/L (136-145)
[2021-04-01] MEDS: Morphine 4 MG/ML VIAL SLOW IVP PRN (04:35)
[2021-04-01] MEDS: Sodium Chloride 0.45% 1,000 ML IV SCH ×2 (04:38→21:15)
[2021-04-01] MEDS: Transdermal Patch Removal TOP SCH (05:11)
[2021-04-01 05:26] LABS: Band 12 % (5-11); Eosinophils 1 % (0-10); Hemoglobin 9.4 g/dL (12.0-16.0); Lymphocytes 1 % (21-51); MDiff Complete? YES; Macrocytosis SLIGHT = 6-15 cells (100X) (0-5/hpf); Mean Corpuscular HGB CONC 33.3 g/dL (32.0-36.0); Mean Corpuscular Hemoglobin 32.9 pg (27.0-31.0); Mean Corpuscular Volume 98.9 fL (78.0-98.0); Mean Platelet Volume 12.1 fL (7.4-10.4); Monocytes 1 % (0-10); Neutrophil 85 % (42-75); Nucleated RBC 1 % (0); Platelet Count 212 thou/uL (130-400); RBC Distribution Width 13.3 % (11.5-14.5); Red Blood Cell (RBC) Count 2.87 mill/uL (4.20-5.40); White Blood Cell (WBC) Count 25.2 thou/uL (4.8-10.8)
[2021-04-01] MEDS: Budesonide 0.5 MG/2 ML NEB NEB SCH ×4 (07:22→23:47)
[2021-04-01] MEDS: Mometasone 200 MCG/Formoterol 5 MCG 120 PUFF INHALER INH SCH ×2 (07:22→18:42)
[2021-04-01] MEDS ORDERED: Enoxaparin Sodium 30 MG/0.3 ML SYRINGE SC SCH (08:36)
[2021-04-01] MEDS: HYDROcodone/Acetaminophen 5/325 mg Tablet PO PRN ×2 (09:34→21:14)
[2021-04-01] MEDS: Famotidine/PF 20 mg/2ml Vial SLOW IVP SCH (09:36)
[2021-04-01] MEDS ORDERED: Dextrose 50% Abboject 50 ML SYRINGE SLOW IVP PRN (11:46)
[2021-04-01] MEDS ORDERED: Dextrose 5% in Water 1,000 ML IV PRN (11:46)
[2021-04-01] MEDS ORDERED: Amlodipine 5 MG TAB PO SCH (12:15)
[2021-04-01] MEDS: HumaLOG 300 UNITS/3 ML VIAL SC PRN (18:15)
[2021-04-01] MEDS: Lidocaine 5% Patch TD SCH (18:18)
[2021-04-01] MEDS ORDERED: Enoxaparin Sodium 40 MG/0.4 ML SYRINGE SC SCH (21:00)
[2021-04-02] MEDS: Transdermal Patch Removal TOP SCH (05:40)
[2021-04-02] MEDS: HYDROcodone/Acetaminophen 5/325 mg Tablet PO PRN (05:40)
[2021-04-02 07:01] LABS: Hemoglobin 9.7 g/dL (12.0-16.0); Mean Corpuscular HGB CONC 31.9 g/dL (32.0-36.0); Mean Corpuscular Hemoglobin 31.6 pg (27.0-31.0); Mean Corpuscular Volume 99.1 fL (78.0-98.0); Mean Platelet Volume 12.5 fL (7.4-10.4); Platelet Count 219 thou/uL (130-400); RBC Distribution Width 13.3 % (11.5-14.5); Red Blood Cell (RBC) Count 3.06 mill/uL (4.20-5.40); White Blood Cell (WBC) Count 44.2 thou/uL (4.8-10.8)
[2021-04-02 07:10] LABS: Anion Gap 9 mmol/L (10-20); BUN (Urea Nitrogen) 37 mg/dL (9.8-20.1); Calc. Creatinine Clearance 96 mL/min (70-130); Carbon Dioxide 35 mmol/L (23-31); Chloride 102 mmol/L (98-107); Glucose 151 mg/dL (80-115); Potassium 3.5 mmol/L (3.5-5.1); Sodium 142 mmol/L (136-145)
[2021-04-02] MEDS: Mometasone 200 MCG/Formoterol 5 MCG 120 PUFF INHALER INH SCH ×2 (07:26→18:21)
[2021-04-02] MEDS: Budesonide 0.5 MG/2 ML NEB NEB SCH ×3 (07:29→18:21)
[2021-04-02] MEDS ORDERED: predniSONE 5 MG TAB PO SCH (08:00)
[2021-04-02 08:09] LABS: Band 18 % (5-11); Lymphocytes 1 % (21-51); MDiff Complete? YES; Neutrophil 81 % (42-75); Platelet Morphology Comment Appears Adequate; Polychromasia SLIGHT = 2-3 cells (100X) (0-2/hpf); Target Cells SLIGHT = 2-5 cells (100X) (0-1/hpf)
[2021-04-02] MEDS ORDERED: Iopamidol-370 76% 500 ML 1 ML ONE (08:55)
[2021-04-02] MEDS ORDERED: Amlodipine 5 MG TAB PO SCH (09:00)
[2021-04-02] MEDS: Famotidine/PF 20 mg/2ml Vial SLOW IVP SCH (09:16)
[2021-04-02] MEDS: Sodium Chloride 0.45% 1,000 ML IV SCH (09:18)
[2021-04-02] MEDS: HumaLOG 300 UNITS/3 ML VIAL SC PRN (17:20)
[2021-04-02] MEDS: Lidocaine 5% Patch TD SCH (17:21)
[2021-04-02] MEDS: Albumin 25% 25 GM/100 ML BOT IVPB SCH ×2 (17:22→23:01)
[2021-04-02] MEDS ORDERED: Phenylephrine 10 MG/ML VIAL ONE (17:44)
[2021-04-02] MEDS ORDERED: Midazolam HCl 2 mg/2 ml Vial ONE (17:44)
[2021-04-02] MEDS ORDERED: Fentanyl 100 MCG/2 ML VIAL ONE ×2 (17:44→17:45)
[2021-04-02] MEDS ORDERED: Ketamine 50 MG/ML (10ML VIAL) ONE (17:44)
[2021-04-02] MEDS ORDERED: Albumin 5% 0 ML ONE ×2 (17:44→17:45)
[2021-04-02] MEDS ORDERED: Calcium Chloride 1 GM/10 ML Abboject SYRINGE ONE (17:46)
[2021-04-02] MEDS ORDERED: Sodium Bicarb 50 MEQ/50 ML Abboject 8.4% SYRINGE ONE (17:46)
[2021-04-02] MEDS ORDERED: PHENYLEPHRINE-NS 100 MCG/ML 10 ML SYRINGE ONE (18:03)
[2021-04-02] MEDS ORDERED: Ondansetron PF 4 MG/2 ML Vial ONE (18:03)
[2021-04-02] MEDS ORDERED: Rocuronium Bromide 10 MG/ML (10ML VIAL) ONE (18:03)
[2021-04-02] MEDS ORDERED: Dextrose 5% in Water 1,000 ML IV PRN (19:46)
[2021-04-02] MEDS ORDERED: Dextrose 50% Abboject 50 ML SYRINGE SLOW IVP PRN (19:46)
[2021-04-02] MEDS ORDERED: Fentanyl CADD 100 ML ONE (19:53)
[2021-04-02] MEDS: Sodium Chloride 0.9% 1,000 ML IV SCH (20:03)
[2021-04-02] MEDS ORDERED: Morphine 2 MG/ML VIAL SLOW IVP PRN (20:15)
[2021-04-02] MEDS ORDERED: Propofol 1,000 MG/100 ML VIAL IV PRN (20:15)
[2021-04-02] MEDS ORDERED: Propofol BOLUS 1,000 MG/100 ML VIAL IV PRN (20:15)
[2021-04-02] MEDS ORDERED: Fentanyl BOLUS 250 ML IVPB PRN (20:15)
[2021-04-02] MEDS ORDERED: Fentanyl CADD 100 ML IV SCH (20:15)
[2021-04-02] MEDS ORDERED: DISCONTINUE PREVIOUS NARCOTIC PAIN MEDICATIONS AND BENZODIAZEPINES FS SCH (20:15)
[2021-04-02] MEDS ORDERED: Lorazepam 2 MG/ML VIAL SLOW IVP PRN (20:15)
[2021-04-02 20:18] LABS: Actual Bicarbonate (HCO3a) 27.4 mEq/L (22-28); Base Excess (BEa) 4.7 mEq/L (-2.0 to +3.0); CO2 Tension 32.9 mmHg (35.0-45.0); Calcium, Ionized (arterial) 1.13 mmol/L (1.12-1.30); Carboxyhemoglobin (COHb) 0.5 gm% (0.0-3.0); Hemoglobin (Hb) 9.1 g/dL (12.0-16.0); O2 Tension (PaO2), arterial 62.9 mmHg (> 80.0); pH, Arterial 7.54 (7.35-7.45)
[2021-04-02 20:19] LABS: Puncture Site LBA
[2021-04-02 20:20] LABS: ALV-art Gradient 252.475 mmHg (0-20)
[2021-04-02] MEDS: Meropenem 2 GM, Admixture Fee 1 EACH in Sodium Chloride 0.9% 100 ML IVPB SCH (21:37)
[2021-04-03] MEDS: Budesonide 0.5 MG/2 ML NEB NEB SCH ×4 (00:23→18:40)
[2021-04-03] MEDS: Meropenem 2 GM, Admixture Fee 1 EACH in Sodium Chloride 0.9% 100 ML IVPB SCH ×3 (02:33→17:35)
[2021-04-03 04:50] LABS: ALT (SGPT) 19 U/L (8-55); AST (SGOT) 13 U/L (5-34); Albumin 2.7 g/dL (3.4-4.8); Alkaline Phosphatase 71 U/L (40-110); Anion Gap 10 mmol/L (10-20); BUN (Urea Nitrogen) 24 mg/dL (9.8-20.1); Bilirubin, Total 0.8 mg/dL (0.2-1.2); Calc. Creatinine Clearance 101 mL/min (70-130); Calcium 8.3 mg/dL (7.8-10.44); Carbon Dioxide 32 mmol/L (23-31); Chloride 101 mmol/L (98-107); Glucose 146 mg/dL (80-115); Hemoglobin 7.7 g/dL (12.0-16.0); Lipase 69 U/L (8-78); Mean Corpuscular HGB CONC 32.2 g/dL (32.0-36.0); Mean Corpuscular Volume 99.4 fL (78.0-98.0); Mean Platelet Volume 13.2 fL (7.4-10.4); Platelet Count 178 thou/uL (130-400); Potassium 3.1 mmol/L (3.5-5.1); Protein, Total 4.7 g/dL (5.8-8.1); RBC Distribution Width 13.6 % (11.5-14.5); Sodium 140 mmol/L (136-145); White Blood Cell (WBC) Count 29.2 thou/uL (4.8-10.8)
[2021-04-03 05:11] LABS: Band 22 % (5-11); Lymphocytes 1 % (21-51); MDiff Complete? YES; Macrocytosis SLIGHT = 6-15 cells (100X) (0-5/hpf); Neutrophil 77 % (42-75)
[2021-04-03 06:21] LABS: Magnesium 1.4 mg/dL (1.6-2.6); Phosphorus 2.7 mg/dL (2.3-4.7)
[2021-04-03] MEDS: Sodium Chloride 0.9% 1,000 ML IV SCH ×4 (06:33→21:12)
[2021-04-03] MEDS: Transdermal Patch Removal TOP SCH (06:33)
[2021-04-03] MEDS: Mometasone 200 MCG/Formoterol 5 MCG 120 PUFF INHALER INH SCH ×2 (06:38→18:37)
[2021-04-03 07:15] LABS: Actual Bicarbonate (HCO3a) 28.1 mEq/L (22-28); Base Excess (BEa) 5.2 mEq/L (-2.0 to +3.0); CO2 Tension 33.9 mmHg (35.0-45.0); Calcium, Ionized (arterial) 1.06 mmol/L (1.12-1.30); Carboxyhemoglobin (COHb) 0.6 gm% (0.0-3.0); Hemoglobin (Hb) 6.5 g/dL (12.0-16.0); O2 Tension (PaO2), arterial 73.1 mmHg (> 80.0); Potassium - ABG Lab 3.06 mmol/L (3.70-5.30); pH, Arterial 7.54 (7.35-7.45)
[2021-04-03 07:17] LABS: ALV-art Gradient 169.725 mmHg (0-20); Puncture Site LRA
[2021-04-03] MEDS: Famotidine/PF 20 mg/2ml Vial SLOW IVP SCH (07:56)
[2021-04-03] MEDS ORDERED: Potassium Phosphate 30 MMOL in Sodium Chloride 0.9% 250 ML 250 ML IVPB SCH (09:00)
[2021-04-03] MEDS ORDERED: Magnesium Sulfate 4 GM in Sodium Chloride 0.9% 250 ML 250 ML IVPB SCH (09:00)
[2021-04-03] MEDS ORDERED: Furosemide 20 MG/2 ML VIAL IVP SCH (09:00)
[2021-04-03] MEDS: methylPREDNISolone Sod Succ 40 MG VIAL IVP SCH (09:20)
[2021-04-03] MEDS: Micafungin 100 MG in Sodium Chloride 0.9% 100 ML IVPB SCH (10:03)
[2021-04-03] MEDS: Lidocaine 5% Patch TD SCH (16:43)
[2021-04-03] MEDS: Fentanyl 100 MCG/2 ML VIAL SLOW IVP PRN (21:18)
[2021-04-04] MEDS: Budesonide 0.5 MG/2 ML NEB NEB SCH ×5 (00:03→23:59)
[2021-04-04] MEDS: Fentanyl 100 MCG/2 ML VIAL SLOW IVP PRN ×4 (00:08→13:43)
[2021-04-04] MEDS: Meropenem 2 GM, Admixture Fee 1 EACH in Sodium Chloride 0.9% 100 ML IVPB SCH ×3 (02:22→17:45)
[2021-04-04 05:33] LABS: #Eosinphils 0.1 thou/uL (0.0-0.7); #Lymphocytes 0.8 thou/uL (1.20-3.40); #Monocytes 1.3 thou/uL (0.11-0.59); #Neutrophils 20.7 thou/uL (1.40-6.50); %Basophils 0.1 % (0.0-1.0); %Eosinophils 0.3 % (0.0-10.0); %Lymphocytes 3.5 % (21.0-51.0); %Monocytes 5.9 % (0.0-10.0); %Neutrophils 90.3 % (42.0-75.0); Hemoglobin 8.3 g/dL (12.0-16.0); Mean Corpuscular HGB CONC 32.3 g/dL (32.0-36.0); Mean Corpuscular Hemoglobin 32.4 pg (27.0-31.0); Mean Platelet Volume 13.1 fL (7.4-10.4); Platelet Count 242 thou/uL (130-400); RBC Distribution Width 13.8 % (11.5-14.5); Red Blood Cell (RBC) Count 2.54 mill/uL (4.20-5.40); White Blood Cell (WBC) Count 22.9 thou/uL (4.8-10.8)
[2021-04-04 06:08] LABS: ALT (SGPT) 19 U/L (8-55); AST (SGOT) 13 U/L (5-34); Albumin 2.7 g/dL (3.4-4.8); Alkaline Phosphatase 88 U/L (40-110); Anion Gap 14 mmol/L (10-20); BUN (Urea Nitrogen) 20 mg/dL (9.8-20.1); Bilirubin, Total 0.6 mg/dL (0.2-1.2); Calc. Creatinine Clearance 101 mL/min (70-130); Calcium 8.5 mg/dL (7.8-10.44); Carbon Dioxide 29 mmol/L (23-31); Chloride 106 mmol/L (98-107); Globulin 2.6 g/dL (2.4-3.5); Glucose 136 mg/dL (80-115); Potassium 3.5 mmol/L (3.5-5.1); Protein, Total 5.3 g/dL (5.8-8.1); Sodium 145 mmol/L (136-145)
[2021-04-04] MEDS: Sodium Chloride 0.9% 1,000 ML IV SCH ×2 (06:37→15:15)
[2021-04-04] MEDS: Mometasone 200 MCG/Formoterol 5 MCG 120 PUFF INHALER INH SCH ×2 (06:45→19:46)
[2021-04-04] MEDS: Transdermal Patch Removal TOP SCH (06:49)
[2021-04-04] MEDS: Famotidine/PF 20 mg/2ml Vial SLOW IVP SCH (09:29)
[2021-04-04] MEDS: methylPREDNISolone Sod Succ 40 MG VIAL IVP SCH (09:30)
[2021-04-04] MEDS: Micafungin 100 MG in Sodium Chloride 0.9% 100 ML IVPB SCH (09:31)
[2021-04-04] MEDS: Lidocaine 5% Patch TD SCH (16:28)
[2021-04-04] MEDS: Labetalol HCl 100 MG/20 ML VIAL SLOW IVP PRN (17:45)
[2021-04-05] MEDS: Labetalol HCl 100 MG/20 ML VIAL SLOW IVP PRN ×2 (00:12→04:16)
[2021-04-05] MEDS: Sodium Chloride 0.9% 1,000 ML IV SCH ×6 (02:06→21:52)
[2021-04-05] MEDS: Meropenem 2 GM, Admixture Fee 1 EACH in Sodium Chloride 0.9% 100 ML IVPB SCH ×3 (02:07→17:24)
[2021-04-05] MEDS: Transdermal Patch Removal TOP SCH (05:01)
[2021-04-05] MEDS: hydrALAZINE 20 MG/ML VIAL SLOW IVP PRN ×4 (05:45→20:17)
[2021-04-05] MEDS: Budesonide 0.5 MG/2 ML NEB NEB SCH ×4 (06:30→22:22)
[2021-04-05] MEDS: Mometasone 200 MCG/Formoterol 5 MCG 120 PUFF INHALER INH SCH ×2 (06:31→18:40)
[2021-04-05 06:34] LABS: #Lymphocytes 1.3 thou/uL (1.20-3.40); #Monocytes 1.6 thou/uL (0.11-0.59); #Neutrophils 15.1 thou/uL (1.40-6.50); %Basophils 0.2 % (0.0-1.0); %Eosinophils 0.1 % (0.0-10.0); %Lymphocytes 7.1 % (21.0-51.0); %Monocytes 8.6 % (0.0-10.0); Mean Corpuscular HGB CONC 31.5 g/dL (32.0-36.0); Mean Corpuscular Hemoglobin 31.3 pg (27.0-31.0); Mean Corpuscular Volume 99.4 fL (78.0-98.0); Mean Platelet Volume 12.8 fL (7.4-10.4); Platelet Count 310 thou/uL (130-400); RBC Distribution Width 13.9 % (11.5-14.5); Red Blood Cell (RBC) Count 2.85 mill/uL (4.20-5.40); White Blood Cell (WBC) Count 17.9 thou/uL (4.8-10.8)
[2021-04-05 06:49] LABS: Anion Gap 12 mmol/L (10-20); BUN (Urea Nitrogen) 25 mg/dL (9.8-20.1); Calc. Creatinine Clearance 101 mL/min (70-130); Calcium 9.3 mg/dL (7.8-10.44); Carbon Dioxide 28 mmol/L (23-31); Chloride 112 mmol/L (98-107); Glucose 167 mg/dL (80-115); Potassium 3.6 mmol/L (3.5-5.1); Sodium 148 mmol/L (136-145)
[2021-04-05] MEDS: Famotidine/PF 20 mg/2ml Vial SLOW IVP SCH (09:42)
[2021-04-05] MEDS: methylPREDNISolone Sod Succ 40 MG VIAL IVP SCH (09:42)
[2021-04-05] MEDS: Micafungin 100 MG in Sodium Chloride 0.9% 100 ML IVPB SCH (09:43)
[2021-04-05] MEDS ORDERED: Lorazepam 2 MG/ML VIAL SLOW IVP PRN (11:31)
[2021-04-05] MEDS: Fentanyl 100 MCG/2 ML VIAL SLOW IVP PRN (14:56)
[2021-04-05] MEDS: Lidocaine 5% Patch TD SCH (17:26)
[2021-04-06] MEDS: Meropenem 2 GM, Admixture Fee 1 EACH in Sodium Chloride 0.9% 100 ML IVPB SCH ×3 (02:07→18:01)
[2021-04-06 04:07] LABS: #Lymphocytes 0.7 thou/uL (1.20-3.40); #Monocytes 1.9 thou/uL (0.11-0.59); #Neutrophils 13.7 thou/uL (1.40-6.50); %Basophils 0.1 % (0.0-1.0); %Eosinophils 0.2 % (0.0-10.0); %Lymphocytes 4.4 % (21.0-51.0); %Monocytes 11.6 % (0.0-10.0); %Neutrophils 83.6 % (42.0-75.0); Hemoglobin 8.8 g/dL (12.0-16.0); Mean Corpuscular HGB CONC 32.1 g/dL (32.0-36.0); Mean Corpuscular Hemoglobin 32.5 pg (27.0-31.0); Mean Platelet Volume 12.6 fL (7.4-10.4); Platelet Count 302 thou/uL (130-400); RBC Distribution Width 13.9 % (11.5-14.5); Red Blood Cell (RBC) Count 2.71 mill/uL (4.20-5.40); White Blood Cell (WBC) Count 16.4 thou/uL (4.8-10.8)
[2021-04-06 04:26] LABS: Anion Gap 10 mmol/L (10-20); BUN (Urea Nitrogen) 29 mg/dL (9.8-20.1); Calc. Creatinine Clearance 111 mL/min (70-130); Calcium 9.2 mg/dL (7.8-10.44); Carbon Dioxide 28 mmol/L (23-31); Chloride 116 mmol/L (98-107); Glucose 158 mg/dL (80-115); Potassium 3.6 mmol/L (3.5-5.1); Sodium 150 mmol/L (136-145)
[2021-04-06] MEDS: Transdermal Patch Removal TOP SCH (04:35)
[2021-04-06] MEDS: Fentanyl 100 MCG/2 ML VIAL SLOW IVP PRN ×6 (04:56→20:52)
[2021-04-06] MEDS: Mometasone 200 MCG/Formoterol 5 MCG 120 PUFF INHALER INH SCH ×2 (06:41→18:10)
[2021-04-06] MEDS: Budesonide 0.5 MG/2 ML NEB NEB SCH ×5 (06:43→22:43)
[2021-04-06] MEDS: Famotidine/PF 20 mg/2ml Vial SLOW IVP SCH (09:18)
[2021-04-06] MEDS: methylPREDNISolone Sod Succ 40 MG VIAL IVP SCH (09:19)
[2021-04-06] MEDS: Micafungin 100 MG in Sodium Chloride 0.9% 100 ML IVPB SCH (09:19)
[2021-04-06] MEDS: Sodium Chloride 0.9% 1,000 ML IV SCH (10:18)
[2021-04-06] MEDS: Sodium Chloride 0.45% 1,000 ML IV SCH (12:19)
[2021-04-06] MEDS: Labetalol HCl 100 MG/20 ML VIAL SLOW IVP PRN (13:54)
[2021-04-06] MEDS: hydrALAZINE 20 MG/ML VIAL SLOW IVP PRN ×2 (16:17→23:14)
[2021-04-06] MEDS: Lidocaine 5% Patch TD SCH (16:17)
[2021-04-06] MEDS ORDERED: Morphine 2 MG/ML VIAL SLOW IVP PRN (18:32)
[2021-04-07] MEDS: Sodium Chloride 0.45% 1,000 ML IV SCH ×2 (02:36→16:16)
[2021-04-07] MEDS: Fentanyl 100 MCG/2 ML VIAL SLOW IVP PRN (02:36)
[2021-04-07] MEDS: Meropenem 2 GM, Admixture Fee 1 EACH in Sodium Chloride 0.9% 100 ML IVPB SCH ×3 (02:39→17:26)
[2021-04-07] MEDS: Morphine 4 MG/ML VIAL SLOW IVP PRN (03:43)
[2021-04-07 04:02] LABS: Hemoglobin 8.6 g/dL (12.0-16.0); Mean Corpuscular HGB CONC 31.4 g/dL (32.0-36.0); Mean Corpuscular Hemoglobin 31.4 pg (27.0-31.0); Mean Platelet Volume 12.8 fL (7.4-10.4); Platelet Count 284 thou/uL (130-400); RBC Distribution Width 14.3 % (11.5-14.5); Red Blood Cell (RBC) Count 2.75 mill/uL (4.20-5.40)
[2021-04-07 04:07] LABS: Anion Gap 10 mmol/L (10-20); BUN (Urea Nitrogen) 29 mg/dL (9.8-20.1); Calc. Creatinine Clearance 119 mL/min (70-130); Carbon Dioxide 28 mmol/L (23-31); Chloride 119 mmol/L (98-107); Glucose 134 mg/dL (80-115); Potassium 3.8 mmol/L (3.5-5.1); Sodium 153 mmol/L (136-145)
[2021-04-07 04:25] LABS: Lymphocytes 10 % (21-51); MDiff Complete? YES; Monocytes 11 % (0-10); Neutrophil 79 % (42-75); Platelet Morphology Comment Appears Adequate
[2021-04-07] MEDS: Transdermal Patch Removal TOP SCH (05:02)
[2021-04-07] MEDS: methylPREDNISolone Sod Succ 40 MG VIAL IVP SCH (08:24)
[2021-04-07] MEDS: Famotidine/PF 20 mg/2ml Vial SLOW IVP SCH (08:24)
[2021-04-07] MEDS: Mometasone 200 MCG/Formoterol 5 MCG 120 PUFF INHALER INH SCH ×2 (08:32→18:50)
[2021-04-07] MEDS: Budesonide 0.5 MG/2 ML NEB NEB SCH ×4 (08:32→22:28)
[2021-04-07] MEDS: Micafungin 100 MG in Sodium Chloride 0.9% 100 ML IVPB SCH (10:05)
[2021-04-07] MEDS: Lidocaine 5% Patch TD SCH (16:16)
[2021-04-07] MEDS ORDERED: Sodium Chloride 0.45% 1,000 ML IV SCH (17:41)
[2021-04-07] MEDS ORDERED: Famotidine/PF 20 mg/2ml Vial SLOW IVP SCH (21:00)
[2021-04-08] MEDS: Morphine 4 MG/ML VIAL SLOW IVP PRN (02:01)
[2021-04-08] MEDS: Meropenem 2 GM, Admixture Fee 1 EACH in Sodium Chloride 0.9% 100 ML IVPB SCH ×3 (03:00→17:15)
[2021-04-08 04:11] LABS: Anion Gap 9 mmol/L (10-20); BUN (Urea Nitrogen) 28 mg/dL (9.8-20.1); Calc. Creatinine Clearance 113 mL/min (70-130); Calcium 8.8 mg/dL (7.8-10.44); Carbon Dioxide 28 mmol/L (23-31); Chloride 118 mmol/L (98-107); Glucose 147 mg/dL (80-115); Potassium 3.9 mmol/L (3.5-5.1); Sodium 151 mmol/L (136-145)
[2021-04-08 04:20] LABS: Hemoglobin 8.3 g/dL (12.0-16.0); MDiff Complete? YES; Mean Corpuscular HGB CONC 32.8 g/dL (32.0-36.0); Mean Corpuscular Hemoglobin 33.4 pg (27.0-31.0); Mean Platelet Volume 13.2 fL (7.4-10.4); Platelet Count 238 thou/uL (130-400); RBC Distribution Width 14.4 % (11.5-14.5); Red Blood Cell (RBC) Count 2.48 mill/uL (4.20-5.40); White Blood Cell (WBC) Count 10.3 thou/uL (4.8-10.8)
[2021-04-08 04:21] LABS: Band 25 % (5-11); Eosinophils 1 % (0-10); Hypochromia SLIGHT = 6-15 cells (100X) (0-5/hpf); Lymphocytes 8 % (21-51); Macrocytosis SLIGHT = 6-15 cells (100X) (0-5/hpf); Monocytes 7 % (0-10); Neutrophil 58 % (42-75); Platelet Morphology Comment Appears Adequate; Reactive Lymphocytes 1 % (0-10)
[2021-04-08] MEDS: Transdermal Patch Removal TOP SCH (05:33)
[2021-04-08] MEDS: Mometasone 200 MCG/Formoterol 5 MCG 120 PUFF INHALER INH SCH ×2 (08:41→18:28)
[2021-04-08] MEDS: Budesonide 0.5 MG/2 ML NEB NEB SCH ×2 (08:43→18:26)
[2021-04-08] MEDS: Acetaminophen 500 MG TAB PO PRN (09:22)
[2021-04-08] MEDS: traMADol HCl 50 MG TAB PO PRN (09:22)
[2021-04-08] MEDS: Micafungin 100 MG in Sodium Chloride 0.9% 100 ML IVPB SCH (09:23)
[2021-04-08] MEDS: Polyethylene Glycol 3350 17 GM Packet PO SCH (09:23)
[2021-04-08] MEDS: methylPREDNISolone Sod Succ 40 MG VIAL IVP SCH (09:24)
[2021-04-08] MEDS ORDERED: Metolazone 5 MG TAB PO SCH (10:15)
[2021-04-08] MEDS ORDERED: Carvedilol 3.125 MG TAB PO SCH (10:30)
[2021-04-08] MEDS: Lidocaine 5% Patch TD SCH (17:15)
[2021-04-08] MEDS: Carvedilol 3.125 MG TAB PO SCH (20:34)
[2021-04-09] MEDS: Budesonide 0.5 MG/2 ML NEB NEB SCH ×5 (00:27→22:47)
[2021-04-09] MEDS: Meropenem 2 GM, Admixture Fee 1 EACH in Sodium Chloride 0.9% 100 ML IVPB SCH ×3 (02:25→17:25)
[2021-04-09] MEDS: Transdermal Patch Removal TOP SCH (05:53)
[2021-04-09 06:15] LABS: #Eosinphils 0.1 thou/uL (0.0-0.7); #Lymphocytes 1.9 thou/uL (1.20-3.40); #Monocytes 0.7 thou/uL (0.11-0.59); #Neutrophils 11.1 thou/uL (1.40-6.50); %Basophils 0.2 % (0.0-1.0); %Eosinophils 1.1 % (0.0-10.0); %Lymphocytes 13.7 % (21.0-51.0); %Monocytes 4.7 % (0.0-10.0); %Neutrophils 80.3 % (42.0-75.0); Hemoglobin 8.2 g/dL (12.0-16.0); Mean Corpuscular Hemoglobin 32.2 pg (27.0-31.0); Mean Platelet Volume 13.2 fL (7.4-10.4); Platelet Count 188 thou/uL (130-400); RBC Distribution Width 14.5 % (11.5-14.5); Red Blood Cell (RBC) Count 2.55 mill/uL (4.20-5.40); White Blood Cell (WBC) Count 13.8 thou/uL (4.8-10.8)
[2021-04-09 06:28] LABS: Albumin 2.5 g/dL (3.4-4.8)
[2021-04-09 06:31] LABS: Anion Gap 7 mmol/L (10-20); BUN (Urea Nitrogen) 24 mg/dL (9.8-20.1); Calc. Creatinine Clearance 122 mL/min (70-130); Calcium 9.1 mg/dL (7.8-10.44); Carbon Dioxide 30 mmol/L (23-31); Chloride 115 mmol/L (98-107); Glucose 111 mg/dL (80-115); Potassium 3.7 mmol/L (3.5-5.1); Sodium 148 mmol/L (136-145)
[2021-04-09 06:33] LABS: Magnesium 1.8 mg/dL (1.6-2.6)
[2021-04-09 06:34] LABS: Phosphorus 1.8 mg/dL (2.3-4.7)
[2021-04-09] MEDS: Mometasone 200 MCG/Formoterol 5 MCG 120 PUFF INHALER INH SCH ×2 (08:18→18:53)
[2021-04-09] MEDS ORDERED: Spironolactone 25 MG TAB PO SCH (10:15)
[2021-04-09] MEDS: Albumin 25% 25 GM/100 ML BOT IVPB SCH ×2 (10:44→17:28)
[2021-04-09] MEDS: Carvedilol 3.125 MG TAB PO SCH ×2 (10:44→22:03)
[2021-04-09] MEDS: Metolazone 5 MG TAB PO SCH (10:44)
[2021-04-09] MEDS: PHOS-NAK 1 PKT PACK PO SCH ×2 (10:44→22:03)
[2021-04-09] MEDS: Polyethylene Glycol 3350 17 GM Packet PO SCH (10:45)
[2021-04-09] MEDS: Acetaminophen 500 MG TAB PO PRN (10:46)
[2021-04-09] MEDS: Micafungin 100 MG in Sodium Chloride 0.9% 100 ML IVPB SCH (10:47)
[2021-04-09] MEDS: methylPREDNISolone Sod Succ 40 MG VIAL IVP SCH (10:48)
[2021-04-09] MEDS: Lidocaine 5% Patch TD SCH (17:25)
[2021-04-09] MEDS: guaiFENesin ER 600 MG TAB PO SCH (22:03)
[2021-04-09] MEDS: traMADol HCl 50 MG TAB PO PRN (22:07)
[2021-04-10] MEDS: Meropenem 2 GM, Admixture Fee 1 EACH in Sodium Chloride 0.9% 100 ML IVPB SCH ×2 (02:14→12:53)
[2021-04-10] MEDS: Albumin 25% 25 GM/100 ML BOT IVPB SCH (02:15)
[2021-04-10 05:29] LABS: Band 21 % (5-11); Eosinophils 2 % (0-10); Hemoglobin 7.1 g/dL (12.0-16.0); Hypochromia SLIGHT = 6-15 cells (100X) (0-5/hpf); Lymphocytes 4 % (21-51); MDiff Complete? YES; Macrocytosis SLIGHT = 6-15 cells (100X) (0-5/hpf); Mean Corpuscular HGB CONC 31.2 g/dL (32.0-36.0); Mean Platelet Volume 12.5 fL (7.4-10.4); Monocytes 5 % (0-10); Neutrophil 68 % (42-75); Nucleated RBC 1 % (0); Platelet Count 192 thou/uL (130-400); Platelet Morphology Comment Appears Adequate; RBC Distribution Width 14.4 % (11.5-14.5); Red Blood Cell (RBC) Count 2.22 mill/uL (4.20-5.40); White Blood Cell (WBC) Count 15.7 thou/uL (4.8-10.8)
[2021-04-10 05:40] LABS: Anion Gap 11 mmol/L (10-20); BUN (Urea Nitrogen) 22 mg/dL (9.8-20.1); Calc. Creatinine Clearance 123 mL/min (70-130); Calcium 9.4 mg/dL (7.8-10.44); Carbon Dioxide 29 mmol/L (23-31); Chloride 112 mmol/L (98-107); Glucose 99 mg/dL (80-115); Potassium 3.7 mmol/L (3.5-5.1); Sodium 148 mmol/L (136-145)
[2021-04-10] MEDS: Transdermal Patch Removal TOP SCH (06:00)
[2021-04-10] MEDS ORDERED: Spironolactone 25 MG TAB PO SCH ×2 (08:00)
[2021-04-10] MEDS: Budesonide 0.5 MG/2 ML NEB NEB SCH ×4 (08:43→23:23)
[2021-04-10] MEDS: Mometasone 200 MCG/Formoterol 5 MCG 120 PUFF INHALER INH SCH ×2 (08:43→19:19)
[2021-04-10] MEDS: Carvedilol 3.125 MG TAB PO SCH (09:10)
[2021-04-10] MEDS: predniSONE 5 MG TAB PO SCH (09:10)
[2021-04-10] MEDS: Metolazone 5 MG TAB PO SCH (09:10)
[2021-04-10] MEDS: Polyethylene Glycol 3350 17 GM Packet PO SCH (09:11)
[2021-04-10] MEDS: guaiFENesin ER 600 MG TAB PO SCH ×2 (09:11→20:24)
[2021-04-10] MEDS: Micafungin 100 MG in Sodium Chloride 0.9% 100 ML IVPB SCH (09:12)
[2021-04-10] MEDS ORDERED: Torsemide 20 MG TAB PO SCH (09:15)
[2021-04-10] MEDS: traMADol HCl 50 MG TAB PO PRN ×2 (09:30→20:27)
[2021-04-10] MEDS: Lidocaine 5% Patch TD SCH (18:18)
[2021-04-11] MEDS: traMADol HCl 50 MG TAB PO PRN (04:07)
[2021-04-11] MEDS: Transdermal Patch Removal TOP SCH (04:08)
[2021-04-11 04:34] LABS: #Basophils 0.1 thou/uL (0.0-0.2); #Eosinphils 0.3 thou/uL (0.0-0.7); #Lymphocytes 1.7 thou/uL (1.20-3.40); #Monocytes 0.5 thou/uL (0.11-0.59); #Neutrophils 13.8 thou/uL (1.40-6.50); %Basophils 0.8 % (0.0-1.0); %Eosinophils 1.6 % (0.0-10.0); %Lymphocytes 10.2 % (21.0-51.0); %Monocytes 3.1 % (0.0-10.0); %Neutrophils 84.4 % (42.0-75.0); Mean Corpuscular HGB CONC 31.7 g/dL (32.0-36.0); Mean Platelet Volume 12.9 fL (7.4-10.4); Platelet Count 191 thou/uL (130-400); RBC Distribution Width 14.6 % (11.5-14.5); Red Blood Cell (RBC) Count 2.49 mill/uL (4.20-5.40); White Blood Cell (WBC) Count 16.3 thou/uL (4.8-10.8)
[2021-04-11 04:46] LABS: Anion Gap 9 mmol/L (10-20); BUN (Urea Nitrogen) 20 mg/dL (9.8-20.1); Calc. Creatinine Clearance 116 mL/min (70-130); Calcium 9.4 mg/dL (7.8-10.44); Carbon Dioxide 32 mmol/L (23-31); Chloride 100 mmol/L (98-107); Glucose 129 mg/dL (80-115); Potassium 3.3 mmol/L (3.5-5.1); Sodium 138 mmol/L (136-145)
[2021-04-11 06:50] LABS: Albumin 3.1 g/dL (3.4-4.8); Magnesium 1.5 mg/dL (1.6-2.6); Phosphorus 2.2 mg/dL (2.3-4.7)
[2021-04-11] MEDS: Polyethylene Glycol 3350 17 GM Packet PO SCH (08:13)
[2021-04-11] MEDS: predniSONE 5 MG TAB PO SCH (08:13)
[2021-04-11] MEDS: guaiFENesin ER 600 MG TAB PO SCH ×2 (08:13→21:49)
[2021-04-11] MEDS: Mometasone 200 MCG/Formoterol 5 MCG 120 PUFF INHALER INH SCH ×2 (08:15→18:39)
[2021-04-11] MEDS: Budesonide 0.5 MG/2 ML NEB NEB SCH ×3 (08:15→18:29)
[2021-04-11] MEDS ORDERED: Magnesium Sulfate 4 GM in Sodium Chloride 0.9% 250 ML 250 ML IVPB SCH (09:45)
[2021-04-11] MEDS: Spironolactone 100 MG TAB PO SCH (12:21)
[2021-04-11 13:21] VITALS: BP 127/66
[2021-04-11] MEDS: PHOS-NAK 1 PKT PACK PO SCH ×2 (18:05→21:49)
[2021-04-11] MEDS: Lidocaine 5% Patch TD SCH (18:05)
[2021-04-12] MEDS: Budesonide 0.5 MG/2 ML NEB NEB SCH ×5 (00:13→23:12)
[2021-04-12 04:16] LABS: #Eosinphils 0.1 thou/uL (0.0-0.7); #Lymphocytes 1.5 thou/uL (1.20-3.40); #Monocytes 0.6 thou/uL (0.11-0.59); #Neutrophils 13.2 thou/uL (1.40-6.50); %Basophils 0.1 % (0.0-1.0); %Eosinophils 0.9 % (0.0-10.0); %Lymphocytes 9.9 % (21.0-51.0); %Monocytes 3.7 % (0.0-10.0); %Neutrophils 85.5 % (42.0-75.0); Hemoglobin 7.9 g/dL (12.0-16.0); Mean Corpuscular HGB CONC 33.2 g/dL (32.0-36.0); Mean Corpuscular Volume 99.3 fL (78.0-98.0); Mean Platelet Volume 13.2 fL (7.4-10.4); Platelet Count 162 thou/uL (130-400); RBC Distribution Width 14.6 % (11.5-14.5); Red Blood Cell (RBC) Count 2.41 mill/uL (4.20-5.40); White Blood Cell (WBC) Count 15.4 thou/uL (4.8-10.8)
[2021-04-12 04:38] LABS: Anion Gap 8 mmol/L (10-20); BUN (Urea Nitrogen) 18 mg/dL (9.8-20.1); Calc. Creatinine Clearance 118 mL/min (70-130); Calcium 9.1 mg/dL (7.8-10.44); Carbon Dioxide 34 mmol/L (23-31); Chloride 97 mmol/L (98-107); Glucose 139 mg/dL (80-115); Potassium 3.4 mmol/L (3.5-5.1); Sodium 136 mmol/L (136-145)
[2021-04-12] MEDS: Transdermal Patch Removal TOP SCH (05:55)
[2021-04-12] MEDS: Mometasone 200 MCG/Formoterol 5 MCG 120 PUFF INHALER INH SCH ×2 (08:09→19:20)
[2021-04-12] MEDS: guaiFENesin ER 600 MG TAB PO SCH ×2 (09:43→21:46)
[2021-04-12] MEDS: Spironolactone 100 MG TAB PO SCH (09:43)
[2021-04-12] MEDS: PHOS-NAK 1 PKT PACK PO SCH ×3 (09:43→21:46)
[2021-04-12] MEDS: predniSONE 5 MG TAB PO SCH (09:43)
[2021-04-12] MEDS: Polyethylene Glycol 3350 17 GM Packet PO SCH (10:23)
[2021-04-12 13:54] VITALS: BMI 34.4
[2021-04-12] MEDS: Lidocaine 5% Patch TD SCH (19:15)
[2021-04-13 05:56] LABS: Anion Gap 10 mmol/L (10-20); BUN (Urea Nitrogen) 14 mg/dL (9.8-20.1); Calc. Creatinine Clearance 121 mL/min (70-130); Calcium 9.5 mg/dL (7.8-10.44); Carbon Dioxide 30 mmol/L (23-31); Chloride 99 mmol/L (98-107); Glucose 122 mg/dL (80-115); Magnesium 1.7 mg/dL (1.6-2.6); Potassium 3.3 mmol/L (3.5-5.1); Sodium 136 mmol/L (136-145)
[2021-04-13 05:59] LABS: Hemoglobin 8.1 g/dL (12.0-16.0); Mean Corpuscular HGB CONC 31.9 g/dL (32.0-36.0); Mean Corpuscular Hemoglobin 31.4 pg (27.0-31.0); Mean Corpuscular Volume 98.4 fL (78.0-98.0); Mean Platelet Volume 12.9 fL (7.4-10.4); Platelet Count 160 thou/uL (130-400); RBC Distribution Width 14.4 % (11.5-14.5); Red Blood Cell (RBC) Count 2.59 mill/uL (4.20-5.40); White Blood Cell (WBC) Count 15.7 thou/uL (4.8-10.8)
[2021-04-13 06:28] LABS: Band 11 % (5-11); Eosinophils 1 % (0-10); Large Platelets SLIGHT; Lymphocytes 4 % (21-51); MDiff Complete? YES; Monocytes 4 % (0-10); Neutrophil 80 % (42-75); Platelet Morphology Comment Appears Adequate; Polychromasia SLIGHT = 2-3 cells (100X) (0-2/hpf)
[2021-04-13 07:18] VITALS: TEMP 98.1
[2021-04-13] MEDS ORDERED: Potassium Chloride 20 MEQ TAB PO SCH (07:45)
[2021-04-13] MEDS: predniSONE 5 MG TAB PO SCH (07:46)
[2021-04-13] MEDS: Acetaminophen 500 MG TAB PO PRN (07:47)
[2021-04-13] MEDS: Spironolactone 100 MG TAB PO SCH (07:47)
[2021-04-13] MEDS: guaiFENesin ER 600 MG TAB PO SCH (07:47)
[2021-04-13] MEDS: PHOS-NAK 1 PKT PACK PO SCH (07:47)
[2021-04-13] MEDS: Transdermal Patch Removal TOP SCH (07:56)
[2021-04-13] MEDS: Polyethylene Glycol 3350 17 GM Packet PO SCH (07:56)
[2021-04-13] MEDS: Budesonide 0.5 MG/2 ML NEB NEB SCH (08:07)
[2021-04-13] MEDS: Mometasone 200 MCG/Formoterol 5 MCG 120 PUFF INHALER INH SCH (08:49)
[2021-04-13] MEDS ORDERED: Magnesium Oxide 400 MG TAB PO SCH (09:00)
[2021-04-17 11:36] LABS: Actual Bicarbonate (HCO3a) 33.1 mEq/L (22-28); Analyzer IN Cardio OR; Base Excess (BEa) 9.7 mEq/L (-2.0 to +3.0); Calcium, Ionized (arterial) 1.11 mmol/L (1.12-1.30); Carboxyhemoglobin (COHb) 0.9 gm% (0.0-3.0); Hemoglobin (Hb) 8.3 g/dL (12.0-16.0); O2 Tension (PaO2), arterial 210.5 mmHg (> 80.0); Potassium - ABG Lab 3.17 mmol/L (3.70-5.30); pH, Arterial 7.54 (7.35-7.45)
[2021-04-17 11:37] LABS: Puncture Site Arterial Line
== END 2021-04-13 09:28 | DRG 326 ==
LOC: ERS 09:33 → SDC/OP 15:43 → CCU 20:26 → UNDOADMIN 20:31 → SURG A 03-22 14:10 → CCU 03-23 08:18 → SJJU 04-01 11:43 → CCU 04-02 19:28 → IMCU/EMU 04-04 12:05
PROVIDERS: ADMIT Specialist; ATTEND Specialist
PROC: 0BUT0JZ Supplement Diaphragm with Synthetic Substitute, Open Approach (ICD-10-PCS; principal; 2021-03-21)
PROC: 0DNU0ZZ Release Omentum, Open Approach (ICD-10-PCS; 2021-03-21)
PROC: 0BN Respiratory System, Release (ICD-10-PCS; 2021-03-21)
PROC: 0FN00ZZ Release Liver, Open Approach (ICD-10-PCS; 2021-03-21)
PROC: 0DNW0ZZ Release Peritoneum, Open Approach (ICD-10-PCS; 2021-03-21)
PROC: 5A09557 Assistance with Respiratory Ventilation, Greater than 96 Consecutive Hours, Continuous Positive Airway Pressure (ICD-10-PCS; 2021-03-23)
PROC: 0CJS8ZZ Inspection of Larynx, Via Natural or Artificial Opening Endoscopic (ICD-10-PCS; 2021-04-01)
PROC: 0W9H00Z Drainage of Retroperitoneum with Drainage Device, Open Approach (ICD-10-PCS; 2021-04-02)
DX: K44.0 Diaphragmatic hernia with obstruction, without gangrene (principal); R65.11 Systemic inflammatory response syndrome (SIRS) of non-infectious origin with acute organ dysfunction; K85.91 Acute pancreatitis with uninfected necrosis, unspecified; Z20.822 Contact with and (suspected) exposure to COVID-19; R57.8 Other shock; N17.0 Acute kidney failure with tubular necrosis; J96.01 Acute respiratory failure with hypoxia; K56.50 Intestinal adhesions [bands], unspecified as to partial versus complete obstruction; E87.2 Acidosis; J98.11 Atelectasis; D62 Acute posthemorrhagic anemia; E87.1 Hypo-osmolality and hyponatremia; M62.82 Rhabdomyolysis; G93.40 Encephalopathy, unspecified; E87.0 Hyperosmolality and hypernatremia; J90 Pleural effusion, not elsewhere classified; K56.7 Ileus, unspecified; E87.3 Alkalosis; E86.0 Dehydration; I10 Essential (primary) hypertension; K21.9 Gastro-esophageal reflux disease without esophagitis; I48.91 Unspecified atrial fibrillation; E66.01 Morbid (severe) obesity due to excess calories; F41.9 Anxiety disorder, unspecified; J44.9 Chronic obstructive pulmonary disease, unspecified; R06.1 Stridor; D72.823 Leukemoid reaction; E87.5 Hyperkalemia; E83.42 Hypomagnesemia; E83.51 Hypocalcemia; E83.39 Other disorders of phosphorus metabolism; I49.5 Sick sinus syndrome; E88.09 Other disorders of plasma-protein metabolism, not elsewhere classified; Z78.1 Physical restraint status; Z28.82 Immunization not carried out because of caregiver refusal; Z90.710 Acquired absence of both cervix and uterus; Z90.722 Acquired absence of ovaries, bilateral; Z90.49 Acquired absence of other specified parts of digestive tract; Z68.34 Body mass index [BMI] 34.0-34.9, adult; Z79.899 Other long term (current) drug therapy; Z90.81 Acquired absence of spleen
CPT/HCPCS: 36415; 36416; 36600; 71045; 74176; 74177; 76770; 80048; 80053; 80202; 81001; 82040; 82150; 82550; 82570; 82728; 82805; 83540; 83550; 83605; 83690; 83735; 83880; 84100; 84156; 84300; 84484; 84540; 85025; 85060; 87040; 93005; 93010; 93306; 93970; 94002; 94003; 94640; 94660; 96365; 96372; 96375; 96376; C1781; J0171; J0360; J0500; J1100; J1650; J1815; J1885; J1940; J2001; J2060; J2185; J2248; J2250; J2270; J2310; J2370; J2405; J2543; J2550; J2704; J2920; J3010; J3370; J3475; J3480; J3490; J7050; J7070; J7512; J7620; J7626; P9045; P9047; Q9967; S0020; S0028; U0002

== ENCOUNTER 2021-05-05 23:57 | Inpatient (IN) | payer OTHER ==
[2021-05-06] MEDS ORDERED: Piperacillin/Tazobactam 3.375 GM VIAL ONE (01:35)
[2021-05-06] MEDS ORDERED: Morphine 2 MG/ML VIAL ONE (01:36)
[2021-05-06] MEDS ORDERED: Fluconazole In NaCl,Iso-Osm 400 MG in Premix Bag 1 BAG IVPB SCH (01:45)
[2021-05-06] MEDS ORDERED: Ondansetron PF 4 MG/2 ML Vial ONE (01:57)
[2021-05-06] MEDS ORDERED: Acetaminophen 325 MG TAB PO PRN (04:30)
[2021-05-06] MEDS ORDERED: Ondansetron PF 4 MG/2 ML Vial IVP PRN ×2 (04:30→11:58)
[2021-05-06] MEDS ORDERED: Sodium Chloride 0.9% 1,000 ML IV SCH ×2 (04:30→23:45)
[2021-05-06] MEDS ORDERED: Ondansetron ODT 4 MG TAB SL PRN (04:30)
[2021-05-06] MEDS ORDERED: Piperacillin/Tazobactam 3.375 GM in Sodium Chloride 0.9% 100 ML IVPB SCH (06:00)
[2021-05-06] MEDS ORDERED: Iopamidol 370 76% 50 ML VIAL FS ONE (09:31)
[2021-05-06] MEDS ORDERED: Lorazepam 2 MG/ML VIAL SLOW IVP PRN ×2 (11:58→23:45)
[2021-05-06] MEDS ORDERED: Morphine 4 MG/ML VIAL SLOW IVP PRN (11:58)
[2021-05-06] MEDS ORDERED: Morphine 2 MG/ML VIAL SLOW IVP PRN ×2 (11:58→23:45)
[2021-05-06] MEDS ORDERED: Ondansetron ODT 4 MG TAB PO PRN (11:58)
[2021-05-06] MEDS ORDERED: hydrALAZINE 20 MG/ML VIAL SLOW IVP PRN (11:58)
[2021-05-06] MEDS ORDERED: Ketorolac Tromethamine 30 MG/ML VIAL IVP PRN (12:01)
[2021-05-06 13:00] LABS: ALT (SGPT) 12 U/L (8-55); AST (SGOT) 17 U/L (5-34); Albumin 2.6 g/dL (3.4-4.8); Alkaline Phosphatase 109 U/L (40-110); Anion Gap 18 mmol/L (10-20); BUN (Urea Nitrogen) 10 mg/dL (9.8-20.1); Bilirubin, Total 0.4 mg/dL (0.2-1.2); Calc. Creatinine Clearance 112 mL/min (70-130); Calcium 8.8 mg/dL (7.8-10.44); Carbon Dioxide 18 mmol/L (23-31); Chloride 102 mmol/L (98-107); Globulin 3.5 g/dL (2.4-3.5); Glucose 76 mg/dL (80-115); Lipase 16 U/L (8-78); Magnesium 1.4 mg/dL (1.6-2.6); Phosphorus 4.1 mg/dL (2.3-4.7); Potassium 4.3 mmol/L (3.5-5.1); Protein, Total 6.1 g/dL (5.8-8.1); Sodium 134 mmol/L (136-145)
[2021-05-06 13:20] LABS: #Lymphocytes 1.7 thou/uL (1.20-3.40); #Monocytes 1.1 thou/uL (0.11-0.59); #Neutrophils 16.2 thou/uL (1.40-6.50); %Basophils 0.1 % (0.0-1.0); %Eosinophils 0.1 % (0.0-10.0); %Lymphocytes 8.9 % (21.0-51.0); %Monocytes 5.9 % (0.0-10.0); %Neutrophils 84.9 % (42.0-75.0); Hemoglobin 7.6 g/dL (12.0-16.0); Mean Corpuscular Hemoglobin 28.4 pg (27.0-31.0); Mean Corpuscular Volume 94.5 fL (78.0-98.0); Mean Platelet Volume 8.9 fL (7.4-10.4); Platelet Count 441 thou/uL (130-400); RBC Distribution Width 15.4 % (11.5-14.5); Red Blood Cell (RBC) Count 2.67 mill/uL (4.20-5.40); White Blood Cell (WBC) Count 19.1 thou/uL (4.8-10.8)
[2021-05-06 13:29] LABS: INR-International Normal Ratio 1.1; PTT 30.3 sec (22.9-36.1); Prothrombin Time 14.1 sec (12.0-14.7)
[2021-05-06 13:50] LABS: Anisocytosis SLIGHT = 6-15 cells (100X) (0-5/hpf); Hypochromia SLIGHT = 6-15 cells (100X) (0-5/hpf); MDiff Complete? YES; Platelet Morphology Comment Appears Increased; Polychromasia SLIGHT = 2-3 cells (100X) (0-2/hpf); Target Cells SLIGHT = 2-5 cells (100X) (0-1/hpf)
[2021-05-06] MEDS: Piperacillin/Tazobactam 3.375 GM in Sodium Chloride 0.9% 100 ML IVPB SCH (15:03)
[2021-05-06] MEDS: Lactated Ringer's 1,000 ML IV SCH (16:03)
[2021-05-06] MEDS ORDERED: Fentanyl 100 MCG/2 ML VIAL ONE (17:21)
[2021-05-06] MEDS ORDERED: Morphine 4 MG/ML VIAL ONE (18:05)
[2021-05-06] MEDS ORDERED: PROPOFOL 200 MG/20 ML VIAL ONE (18:57)
[2021-05-06] MEDS ORDERED: ePHEDrine Sulfate 50 MG/10 ML VIAL ONE (18:57)
[2021-05-06] MEDS ORDERED: Calcium Chloride 1 GM/10 ML Abboject SYRINGE ONE (18:57)
[2021-05-06] MEDS ORDERED: Lidocaine 1% PF 5 ML VIAL ONE (18:57)
[2021-05-06] MEDS ORDERED: Succinylcholine 200 MG/10 ml SYRINGE FS ONE (18:57)
[2021-05-06] MEDS ORDERED: PHENYLEPHRINE-NS 100 MCG/ML 10 ML SYRINGE ONE ×2 (18:57→20:02)
[2021-05-06] MEDS ORDERED: Rocuronium Bromide 10 MG/ML (10ML VIAL) ONE (18:57)
[2021-05-06] MEDS ORDERED: Esmolol 100 MG/10 ML VIAL ONE (18:57)
[2021-05-06] MEDS ORDERED: Methylene Blue 50 MG/10 ML AMPUL ONE (20:10)
[2021-05-06] MEDS ORDERED: Phenylephrine 10 MG/ML VIAL ONE (21:45)
[2021-05-06] MEDS ORDERED: Norepinephrine 4 MG/4 ML VIAL ONE (21:52)
[2021-05-06 21:54] LABS: Base Excess (BEa) -3.5 mEq/L (-2.0 to +3.0); CO2 Tension 41.6 mmHg (35.0-45.0); Calcium, Ionized (arterial) 1.38 mmol/L (1.12-1.30); Carboxyhemoglobin (COHb) 0.5 gm% (0.0-3.0); Hemoglobin (Hb) 10.4 g/dL (12.0-16.0); Potassium - ABG Lab 3.85 mmol/L (3.70-5.30); pH, Arterial 7.34 (7.35-7.45)
[2021-05-06 21:56] LABS: O2 Tension (PaO2), arterial 36.6 mmHg (> 80.0)
[2021-05-06] MEDS ORDERED: Midazolam HCl 2 mg/2 ml Vial ONE (21:56)
[2021-05-06] MEDS ORDERED: Ventilator Sedation Protocol 1 EACH FS SCH (23:30)
[2021-05-06] MEDS ORDERED: Propofol BOLUS 1,000 MG/100 ML VIAL IV PRN (23:45)
[2021-05-06] MEDS ORDERED: Fentanyl BOLUS 250 ML IVPB PRN (23:45)
[2021-05-06] MEDS ORDERED: DISCONTINUE PREVIOUS NARCOTIC PAIN MEDICATIONS AND BENZODIAZEPINES FS SCH (23:45)
[2021-05-06] MEDS ORDERED: Fentanyl CADD 100 ML IV SCH (23:45)
[2021-05-06] MEDS ORDERED: Propofol 1,000 MG/100 ML VIAL IV PRN (23:45)
[2021-05-06] MEDS ORDERED: Albuterol Sulfate 2.5 mg/3 ml Neb NEB SCH (23:59)
[2021-05-06] MEDS ORDERED: Piperacillin/Tazobactam 4.5 GM in Sodium Chloride 0.9% 100 ML IVPB SCH (23:59)
[2021-05-07] MEDS ORDERED: Sodium Bicarb 50 MEQ/50 ML Abboject 8.4% SYRINGE IVP SCH ×3 (00:15→13:45)
[2021-05-07] MEDS: Albumin 25% 25 GM/100 ML BOT IVPB SCH ×4 (00:17→17:05)
[2021-05-07] MEDS: Piperacillin/Tazobactam 3.375 GM in Sodium Chloride 0.9% 100 ML IVPB SCH ×4 (00:19→16:01)
[2021-05-07 00:20] LABS: Base Excess (BEa) -13.5 mEq/L (-2.0 to +3.0); Calcium, Ionized (arterial) 1.25 mmol/L (1.12-1.30); Carboxyhemoglobin (COHb) 0.4 gm% (0.0-3.0); Hemoglobin (Hb) 11.4 g/dL (12.0-16.0); O2 Tension (PaO2), arterial 211.2 mmHg (> 80.0); Potassium - ABG Lab 6.01 mmol/L (3.70-5.30); pH, Arterial 7.27 (7.35-7.45)
[2021-05-07 00:21] LABS: Puncture Site Arterial Line
[2021-05-07] MEDS: Enoxaparin Sodium 40 MG/0.4 ML SYRINGE SC SCH ×2 (00:38→21:22)
[2021-05-07 00:45] LABS: ALT (SGPT) 94 U/L (8-55); AST (SGOT) 183 U/L (5-34); Albumin 2.3 g/dL (3.4-4.8); Alkaline Phosphatase 136 U/L (40-110); Anion Gap 22 mmol/L (10-20); BUN (Urea Nitrogen) 12 mg/dL (9.8-20.1); Bilirubin, Total 1.2 mg/dL (0.2-1.2); Calc. Creatinine Clearance 83 mL/min (70-130); Calcium 10.1 mg/dL (7.8-10.44); Carbon Dioxide 11 mmol/L (23-31); Chloride 106 mmol/L (98-107); Globulin 3.4 g/dL (2.4-3.5); Glucose 136 mg/dL (80-115); Potassium 5.6 mmol/L (3.5-5.1); Protein, Total 5.7 g/dL (5.8-8.1); Sodium 133 mmol/L (136-145)
[2021-05-07] MEDS: Sodium Chloride 0.9% 1,000 ML IV SCH ×5 (00:45→22:23)
[2021-05-07] MEDS: Sodium Bicarb 50 MEQ/50 ML Abboject 8.4% SYRINGE ONE ×3 (00:46→08:39)
[2021-05-07] MEDS: Famotidine/PF 20 mg/2ml Vial SLOW IVP SCH ×2 (00:52→08:29)
[2021-05-07 00:58] LABS: Mean Corpuscular HGB CONC 31.6 g/dL (32.0-36.0); Mean Corpuscular Hemoglobin 30.6 pg (27.0-31.0); Mean Corpuscular Volume 96.8 fL (78.0-98.0); Platelet Count 295 thou/uL (130-400); RBC Distribution Width 14.2 % (11.5-14.5); Red Blood Cell (RBC) Count 3.58 mill/uL (4.20-5.40); White Blood Cell (WBC) Count 16.9 thou/uL (4.8-10.8)
[2021-05-07 00:59] LABS: Lymphocytes 9 % (21-51); MDiff Complete? YES; Metamyelocyte 2 % (0-0); Neutrophil 89 % (42-75); Platelet Morphology Comment Appears Adequate
[2021-05-07 02:42] LABS: Actual Bicarbonate (HCO3a) 13.4 mEq/L (22-28); Base Excess (BEa) -11.8 mEq/L (-2.0 to +3.0); CO2 Tension 28.1 mmHg (35.0-45.0); Calcium, Ionized (arterial) 1.15 mmol/L (1.12-1.30); Carboxyhemoglobin (COHb) 0.1 gm% (0.0-3.0); Hemoglobin (Hb) 9.8 g/dL (12.0-16.0); O2 Tension (PaO2), arterial 152.8 mmHg (> 80.0); Potassium - ABG Lab 4.15 mmol/L (3.70-5.30)
[2021-05-07 02:47] LABS: ALV-art Gradient 97.275 mmHg (0-20); Puncture Site Arterial Line
[2021-05-07] MEDS: Norepinephrine 8 MG/0.9% NS 250 ML IVPB SCH ×3 (03:17→15:57)
[2021-05-07] MEDS ORDERED: Fentanyl CADD 100 ML ONE (04:08)
[2021-05-07 04:11] LABS: Hemoglobin 9.3 g/dL (12.0-16.0); Mean Corpuscular HGB CONC 32.4 g/dL (32.0-36.0); Mean Corpuscular Hemoglobin 31.3 pg (27.0-31.0); Mean Corpuscular Volume 96.7 fL (78.0-98.0); Mean Platelet Volume 9.8 fL (7.4-10.4); Platelet Count 268 thou/uL (130-400); RBC Distribution Width 14.4 % (11.5-14.5); Red Blood Cell (RBC) Count 2.98 mill/uL (4.20-5.40); White Blood Cell (WBC) Count 20.9 thou/uL (4.8-10.8)
[2021-05-07 04:31] LABS: ALT (SGPT) 170 U/L (8-55); AST (SGOT) 309 U/L (5-34); Albumin 2.8 g/dL (3.4-4.8); Alkaline Phosphatase 110 U/L (40-110); BUN (Urea Nitrogen) 12 mg/dL (9.8-20.1); Bilirubin, Total 1.9 mg/dL (0.2-1.2); Calc. Creatinine Clearance 77 mL/min (70-130); Chloride 107 mmol/L (98-107); Globulin 2.5 g/dL (2.4-3.5); Glucose 85 mg/dL (80-115); Potassium 4.5 mmol/L (3.5-5.1); Protein, Total 5.3 g/dL (5.8-8.1); Sodium 138 mmol/L (136-145)
[2021-05-07 04:36] LABS: Carbon Dioxide Less than 8 mmol/L (23-31)
[2021-05-07 04:39] LABS: Band 2 % (5-11); Lymphocytes 2 % (21-51); MDiff Complete? YES; Metamyelocyte 2 % (0-0); Monocytes 2 % (0-10); Neutrophil 92 % (42-75); Platelet Morphology Comment Appears Adequate
[2021-05-07] MEDS ORDERED: Sodium Chloride 0.9% 1,000 ML IV SCH (05:00)
[2021-05-07 07:28] LABS: Actual Bicarbonate (HCO3a) 8.2 mEq/L (22-28); Base Excess (BEa) -18.3 mEq/L (-2.0 to +3.0); Carboxyhemoglobin (COHb) 0.7 gm% (0.0-3.0); Hemoglobin (Hb) 8.4 g/dL (12.0-16.0); O2 Tension (PaO2), arterial 125.8 mmHg (> 80.0); Potassium - ABG Lab 4.56 mmol/L (3.70-5.30)
[2021-05-07 07:29] LABS: CO2 Tension 21.6 mmHg (35.0-45.0)
[2021-05-07 07:30] LABS: Puncture Site Arterial Line
[2021-05-07] MEDS: Pantoprazole 40 MG VIAL IVP SCH ×2 (08:30→21:22)
[2021-05-07] MEDS: Fluconazole In NaCl,Iso-Osm 200 MG in Premix Bag 1 BAG IVPB SCH (08:31)
[2021-05-07] MEDS: Sodium Bicarbonate 150 MEQ in Dextrose 5% in Water 1,000 ML IV SCH ×2 (08:40→18:35)
[2021-05-07] MEDS: Lactated Ringer's 1,000 ML IV SCH (09:52)
[2021-05-07 12:26] LABS: Hemoglobin 7.4 g/dL (12.0-16.0); Mean Corpuscular Hemoglobin 31.2 pg (27.0-31.0); Mean Corpuscular Volume 97.7 fL (78.0-98.0); Mean Platelet Volume 9.7 fL (7.4-10.4); Platelet Count 276 thou/uL (130-400); RBC Distribution Width 14.6 % (11.5-14.5); Red Blood Cell (RBC) Count 2.36 mill/uL (4.20-5.40); White Blood Cell (WBC) Count 16.6 thou/uL (4.8-10.8)
[2021-05-07 12:42] LABS: BUN (Urea Nitrogen) 16 mg/dL (9.8-20.1); Calc. Creatinine Clearance 56 mL/min (70-130); Calcium 7.7 mg/dL (7.8-10.44); Chloride 110 mmol/L (98-107); Glucose 170 mg/dL (80-115); Potassium 4.5 mmol/L (3.5-5.1); Sodium 142 mmol/L (136-145)
[2021-05-07 12:50] LABS: Carbon Dioxide Less than 8 mmol/L (23-31)
[2021-05-07 12:58] LABS: Band 15 % (5-11); Lymphocytes 2 % (21-51); MDiff Complete? YES; Monocytes 3 % (0-10); Myelocyte 1 % (0-0); Neutrophil 79 % (42-75); Nucleated RBC 2 % (0); Platelet Morphology Comment Appears Adequate; Polychromasia MODERATE = 3-4 cells (100X) (0-2/hpf); Vacuoles SLIGHT
[2021-05-07] MEDS ORDERED: Hydrocortisone Sod Succ/PF 100 mg/2 ml Vial IVP SCH (14:00)
[2021-05-07] MEDS: Hydrocortisone Sod Succ/PF 100 mg/2 ml Vial IVP SCH ×2 (14:23→21:22)
[2021-05-07 15:22] LABS: Actual Bicarbonate (HCO3a) 15.5 mEq/L (22-28); Base Excess (BEa) -6.7 mEq/L (-2.0 to +3.0); Calcium, Ionized (arterial) 0.96 mmol/L (1.12-1.30); Carboxyhemoglobin (COHb) 0.6 gm% (0.0-3.0); Hemoglobin (Hb) 6.6 g/dL (12.0-16.0); O2 Tension (PaO2), arterial 120.7 mmHg (> 80.0); Potassium - ABG Lab 3.91 mmol/L (3.70-5.30); pH, Arterial 7.52 (7.35-7.45)
[2021-05-07 15:23] LABS: CO2 Tension 19.5 mmHg (35.0-45.0); Puncture Site Arterial Line
[2021-05-07 15:24] LABS: ALV-art Gradient 104.475 mmHg (0-20)
[2021-05-07] MEDS ORDERED: Sodium Bicarbonate 150 MEQ in Dextrose 5% in Water 1,000 ML IV SCH (18:45)
[2021-05-07 23:52] LABS: Hemoglobin 9.1 g/dL (12.0-16.0); Mean Corpuscular HGB CONC 32.4 g/dL (32.0-36.0); Mean Corpuscular Hemoglobin 30.2 pg (27.0-31.0); Mean Corpuscular Volume 93.3 fL (78.0-98.0); Mean Platelet Volume 9.8 fL (7.4-10.4); Platelet Count 211 thou/uL (130-400); RBC Distribution Width 13.8 % (11.5-14.5); Red Blood Cell (RBC) Count 3.01 mill/uL (4.20-5.40); White Blood Cell (WBC) Count 12.8 thou/uL (4.8-10.8)
[2021-05-08 00:08] LABS: Band 24 % (5-11); Hypochromia SLIGHT = 6-15 cells (100X) (0-5/hpf); Lymphocytes 7 % (21-51); MDiff Complete? YES; Monocytes 4 % (0-10); Neutrophil 63 % (42-75); Nucleated RBC 2 % (0); Platelet Morphology Comment Appears Adequate; Reactive Lymphocytes 2 % (0-10)
[2021-05-08] MEDS: Piperacillin/Tazobactam 3.375 GM in Sodium Chloride 0.9% 100 ML IVPB SCH ×3 (00:56→16:04)
[2021-05-08] MEDS: Albumin 25% 25 GM/100 ML BOT IVPB SCH (00:56)
[2021-05-08] MEDS: Sodium Chloride 0.9% 1,000 ML IV SCH ×2 (00:59→09:25)
[2021-05-08 05:07] LABS: INR-International Normal Ratio 1.7; PTT 36.4 sec (22.9-36.1); Prothrombin Time 19.8 sec (12.0-14.7)
[2021-05-08 05:23] LABS: Band 34 % (5-11); Hemoglobin 8.3 g/dL (12.0-16.0); Hypochromia SLIGHT = 6-15 cells (100X) (0-5/hpf); Lymphocytes 7 % (21-51); MDiff Complete? YES; Mean Corpuscular HGB CONC 34.5 g/dL (32.0-36.0); Mean Corpuscular Hemoglobin 31.7 pg (27.0-31.0); Mean Corpuscular Volume 91.9 fL (78.0-98.0); Mean Platelet Volume 9.7 fL (7.4-10.4); Metamyelocyte 1 % (0-0); Monocytes 3 % (0-10); Neutrophil 55 % (42-75); Nucleated RBC 3 % (0); Platelet Count 173 thou/uL (130-400); Platelet Morphology Comment Appears Adequate; RBC Distribution Width 13.9 % (11.5-14.5); Red Blood Cell (RBC) Count 2.63 mill/uL (4.20-5.40); White Blood Cell (WBC) Count 13.9 thou/uL (4.8-10.8)
[2021-05-08 05:38] LABS: ALT (SGPT) 1018 U/L (8-55); AST (SGOT) 1778 U/L (5-34); Albumin 3.5 g/dL (3.4-4.8); Alkaline Phosphatase 98 U/L (40-110); Anion Gap 16 mmol/L (10-20); BUN (Urea Nitrogen) 22 mg/dL (9.8-20.1); Bilirubin, Total 2.7 mg/dL (0.2-1.2); Calc. Creatinine Clearance 36 mL/min (70-130); Calcium 7.5 mg/dL (7.8-10.44); Carbon Dioxide 24 mmol/L (23-31); Chloride 107 mmol/L (98-107); Globulin 1.7 g/dL (2.4-3.5); Glucose 220 mg/dL (80-115); Protein, Total 5.2 g/dL (5.8-8.1); Sodium 144 mmol/L (136-145)
[2021-05-08] MEDS: Hydrocortisone Sod Succ/PF 100 mg/2 ml Vial IVP SCH ×3 (06:46→22:18)
[2021-05-08 07:59] LABS: Actual Bicarbonate (HCO3a) 23.6 mEq/L (22-28); Base Excess (BEa) 1.6 mEq/L (-2.0 to +3.0); CO2 Tension 27.6 mmHg (35.0-45.0); Calcium, Ionized (arterial) 0.89 mmol/L (1.12-1.30); Hemoglobin (Hb) 8.7 g/dL (12.0-16.0); O2 Tension (PaO2), arterial 105.8 mmHg (> 80.0); Potassium - ABG Lab 2.85 mmol/L (3.70-5.30)
[2021-05-08 08:00] LABS: Puncture Site Arterial Line; pH, Arterial 7.55 (7.35-7.45)
[2021-05-08] MEDS: Pantoprazole 40 MG VIAL IVP SCH ×2 (09:08→21:18)
[2021-05-08] MEDS ORDERED: DC Sedation Protocol FS PRN (09:09)
[2021-05-08] MEDS: Fluconazole In NaCl,Iso-Osm 200 MG in Premix Bag 1 BAG IVPB SCH (09:47)
[2021-05-08] MEDS: Potassium Chloride 20 MEQ in Premix Bag 1 BAG IVPB SCH ×2 (11:59→13:50)
[2021-05-08] MEDS: Lactated Ringer's 1,000 ML IV SCH ×3 (11:59→23:04)
[2021-05-08] MEDS: Morphine 4 MG/ML VIAL SLOW IVP PRN ×3 (12:07→19:20)
[2021-05-08 14:22] LABS: Mean Corpuscular HGB CONC 34.2 g/dL (32.0-36.0); Mean Corpuscular Hemoglobin 31.9 pg (27.0-31.0); Mean Corpuscular Volume 93.4 fL (78.0-98.0); Mean Platelet Volume 9.7 fL (7.4-10.4); Platelet Count 176 thou/uL (130-400); RBC Distribution Width 14.2 % (11.5-14.5); Red Blood Cell (RBC) Count 2.81 mill/uL (4.20-5.40)
[2021-05-08 14:42] LABS: Anion Gap 15 mmol/L (10-20); BUN (Urea Nitrogen) 25 mg/dL (9.8-20.1); Calc. Creatinine Clearance 38 mL/min (70-130); Calcium 7.1 mg/dL (7.8-10.44); Carbon Dioxide 27 mmol/L (23-31); Chloride 107 mmol/L (98-107); Glucose 111 mg/dL (80-115); Potassium 4.1 mmol/L (3.5-5.1); Sodium 145 mmol/L (136-145)
[2021-05-08 14:50] LABS: White Blood Cell (WBC) Count 19.8 thou/uL (4.8-10.8)
[2021-05-08 14:51] LABS: Band 20 % (5-11); Lymphocytes 8 % (21-51); MDiff Complete? YES; Metamyelocyte 1 % (0-0); Monocytes 1 % (0-10); Myelocyte 1 % (0-0); Neutrophil 69 % (42-75); Nucleated RBC 3 % (0); Platelet Morphology Comment Appears Adequate; Polychromasia SLIGHT = 2-3 cells (100X) (0-2/hpf); Target Cells SLIGHT = 2-5 cells (100X) (0-1/hpf); Vacuoles SLIGHT
[2021-05-08] MEDS ORDERED: Enoxaparin Sodium 30 MG/0.3 ML SYRINGE SC SCH (21:00)
[2021-05-09] MEDS: Piperacillin/Tazobactam 3.375 GM in Sodium Chloride 0.9% 100 ML IVPB SCH ×4 (01:18→22:59)
[2021-05-09 04:21] LABS: Hemoglobin 8.8 g/dL (12.0-16.0); Mean Corpuscular HGB CONC 33.8 g/dL (32.0-36.0); Mean Corpuscular Hemoglobin 31.9 pg (27.0-31.0); Mean Corpuscular Volume 94.3 fL (78.0-98.0); Mean Platelet Volume 9.7 fL (7.4-10.4); Platelet Count 156 thou/uL (130-400); RBC Distribution Width 14.4 % (11.5-14.5); Red Blood Cell (RBC) Count 2.75 mill/uL (4.20-5.40); White Blood Cell (WBC) Count 22.1 thou/uL (4.8-10.8)
[2021-05-09 04:39] LABS: ALT (SGPT) 827 U/L (8-55); AST (SGOT) 561 U/L (5-34); Albumin 2.9 g/dL (3.4-4.8); Alkaline Phosphatase 119 U/L (40-110); Anion Gap 18 mmol/L (10-20); BUN (Urea Nitrogen) 30 mg/dL (9.8-20.1); Bilirubin, Total 1.9 mg/dL (0.2-1.2); Calc. Creatinine Clearance 33 mL/min (70-130); Calcium 7.5 mg/dL (7.8-10.44); Carbon Dioxide 23 mmol/L (23-31); Chloride 107 mmol/L (98-107); Glucose 118 mg/dL (80-115); Potassium 4.1 mmol/L (3.5-5.1); Protein, Total 4.9 g/dL (5.8-8.1); Sodium 144 mmol/L (136-145)
[2021-05-09 04:41] LABS: Lymphocytes 1 % (21-51); MDiff Complete? YES; Monocytes 4 % (0-10); Neutrophil 93 % (42-75); Nucleated RBC 1 % (0); Platelet Morphology Comment Appears Adequate; Reactive Lymphocytes 2 % (0-10)
[2021-05-09] MEDS: Hydrocortisone Sod Succ/PF 100 mg/2 ml Vial IVP SCH (06:34)
[2021-05-09] MEDS: Lactated Ringer's 1,000 ML IV SCH ×3 (06:34→22:22)
[2021-05-09] MEDS: Norepinephrine 8 MG/0.9% NS 250 ML IVPB SCH ×2 (07:01→17:55)
[2021-05-09] MEDS ORDERED: Sodium Chloride 0.9% 1,000 ML IV SCH (08:00)
[2021-05-09 08:13] LABS: INR-International Normal Ratio 1.7; PTT 34.5 sec (22.9-36.1); Prothrombin Time 19.8 sec (12.0-14.7)
[2021-05-09 08:34] LABS: Actual Bicarbonate (HCO3a) 15.2 mEq/L (22-28); Base Excess (BEa) -8.5 mEq/L (-2.0 to +3.0); Carboxyhemoglobin (COHb) 0.2 gm% (0.0-3.0); O2 Tension (PaO2), arterial 122.3 mmHg (> 80.0); Potassium - ABG Lab 4.62 mmol/L (3.70-5.30)
[2021-05-09 08:37] LABS: Band 16 % (5-11); Hemoglobin 6.2 g/dL (12.0-16.0); Lymphocytes 6 % (21-51); MDiff Complete? YES; Mean Corpuscular Hemoglobin 31.4 pg (27.0-31.0); Mean Corpuscular Volume 95.1 fL (78.0-98.0); Mean Platelet Volume 9.7 fL (7.4-10.4); Metamyelocyte 1 % (0-0); Monocytes 3 % (0-10); Neutrophil 74 % (42-75); Nucleated RBC 2 % (0); Platelet Count 115 thou/uL (130-400); Platelet Morphology Comment Appears Decreased; Polychromasia SLIGHT = 2-3 cells (100X) (0-2/hpf); RBC Distribution Width 14.3 % (11.5-14.5); Red Blood Cell (RBC) Count 1.97 mill/uL (4.20-5.40); Vacuoles SLIGHT; White Blood Cell (WBC) Count 15.2 thou/uL (4.8-10.8)
[2021-05-09] MEDS: Albumin 25% 25 GM/100 ML BOT IVPB SCH ×3 (08:56→20:43)
[2021-05-09] MEDS ORDERED: Furosemide 40 MG/4 ML VIAL IVP SCH (09:00)
[2021-05-09] MEDS: Pantoprazole 40 MG VIAL IVP SCH ×2 (09:04→20:43)
[2021-05-09] MEDS: Fluconazole In NaCl,Iso-Osm 200 MG in Premix Bag 1 BAG IVPB SCH (09:17)
[2021-05-09] MEDS ORDERED: Dextrose 5% in Water 1,000 ML IV PRN (09:30)
[2021-05-09] MEDS ORDERED: Dextrose 50% Abboject 50 ML SYRINGE SLOW IVP PRN (09:30)
[2021-05-09] MEDS: Morphine 4 MG/ML VIAL SLOW IVP PRN ×3 (09:31→21:35)
[2021-05-09] MEDS ORDERED: Magnesium Sulfate 3 GM in Sodium Chloride 0.9% 100 ML IVPB SCH (10:00)
[2021-05-09 11:10] LABS: CO2 Tension 24.8 mmHg (35.0-45.0); Puncture Site LRA
[2021-05-09] MEDS: Sodium Acetate 2 mEq/ml 70 MEQ, Calcium Chloride 10 MEQ, Magnesium Sulfate 4.06 MEQ/ML ... IV SCH (14:30)
[2021-05-09 16:18] LABS: Hemoglobin 9.1 g/dL (12.0-16.0); Mean Corpuscular HGB CONC 34.1 g/dL (32.0-36.0); Mean Corpuscular Hemoglobin 31.2 pg (27.0-31.0); Mean Corpuscular Volume 91.5 fL (78.0-98.0); Mean Platelet Volume 10.3 fL (7.4-10.4); Platelet Count 76 thou/uL (130-400); RBC Distribution Width 14.3 % (11.5-14.5); Red Blood Cell (RBC) Count 2.93 mill/uL (4.20-5.40)
[2021-05-09 16:21] LABS: INR-International Normal Ratio 1.6; Prothrombin Time 19.1 sec (12.0-14.7)
[2021-05-09 16:32] LABS: Anion Gap 23 mmol/L (10-20); BUN (Urea Nitrogen) 35 mg/dL (9.8-20.1); Calc. Creatinine Clearance 32 mL/min (70-130); Calcium 7.5 mg/dL (7.8-10.44); Carbon Dioxide 15 mmol/L (23-31); Chloride 111 mmol/L (98-107); Glucose 208 mg/dL (80-115); Magnesium 2.1 mg/dL (1.6-2.6); Potassium 4.3 mmol/L (3.5-5.1); Sodium 145 mmol/L (136-145)
[2021-05-09 16:39] LABS: Anisocytosis SLIGHT = 6-15 cells (100X) (0-5/hpf); Band 59 % (5-11); Lymphocytes 3 % (21-51); MDiff Complete? YES; Metamyelocyte 1 % (0-0); Monocytes 1 % (0-10); Myelocyte 3 % (0-0); Neutrophil 33 % (42-75); Nucleated RBC 2 % (0); Platelet Morphology Comment Appears Decreased; Polychromasia MARKED = >4 cells (100X) (0-2/hpf); Target Cells SLIGHT = 2-5 cells (100X) (0-1/hpf); White Blood Cell (WBC) Count 22.1 thou/uL (4.8-10.8)
[2021-05-09] MEDS: Budesonide 0.5 MG/2 ML NEB NEB SCH (18:18)
[2021-05-09] MEDS ORDERED: Furosemide 40 MG/4 ML VIAL SLOW IVP SCH (19:00)
[2021-05-09] MEDS: HumaLOG 300 UNITS/3 ML VIAL SC PRN (20:00)
[2021-05-09] MEDS ORDERED: Hydrocortisone Sod Succ/PF 100 mg/2 ml Vial IVP SCH (21:00)
[2021-05-10] MEDS: HumaLOG 300 UNITS/3 ML VIAL SC PRN ×3 (00:28→12:33)
[2021-05-10] MEDS: Albumin 25% 25 GM/100 ML BOT IVPB SCH ×2 (02:01→07:59)
[2021-05-10] MEDS: Morphine 4 MG/ML VIAL SLOW IVP PRN ×3 (03:21→16:35)
[2021-05-10 04:05] LABS: INR-International Normal Ratio 1.6; Prothrombin Time 18.7 sec (12.0-14.7)
[2021-05-10 04:19] LABS: ALT (SGPT) 457 U/L (8-55); AST (SGOT) 265 U/L (5-34); Albumin 3.5 g/dL (3.4-4.8); Alkaline Phosphatase 78 U/L (40-110); Anion Gap 18 mmol/L (10-20); BUN (Urea Nitrogen) 38 mg/dL (9.8-20.1); Bilirubin, Total 2.2 mg/dL (0.2-1.2); Calc. Creatinine Clearance 29 mL/min (70-130); Calcium 8.1 mg/dL (7.8-10.44); Carbon Dioxide 20 mmol/L (23-31); Chloride 110 mmol/L (98-107); Globulin 1.5 g/dL (2.4-3.5); Glucose 240 mg/dL (80-115); Magnesium 2.1 mg/dL (1.6-2.6); Potassium 3.9 mmol/L (3.5-5.1); Sodium 144 mmol/L (136-145)
[2021-05-10 05:18] LABS: Mean Corpuscular HGB CONC 35.4 g/dL (32.0-36.0); Mean Corpuscular Hemoglobin 32.3 pg (27.0-31.0); Mean Corpuscular Volume 91.1 fL (78.0-98.0); Mean Platelet Volume 10.9 fL (7.4-10.4); Platelet Count 68 thou/uL (130-400); RBC Distribution Width 14.5 % (11.5-14.5); Red Blood Cell (RBC) Count 2.18 mill/uL (4.20-5.40)
[2021-05-10 05:19] LABS: Band 36 % (5-11); Lymphocytes 5 % (21-51); MDiff Complete? YES; Monocytes 1 % (0-10); Neutrophil 58 % (42-75); Platelet Morphology Comment Appears Decreased
[2021-05-10] MEDS: Piperacillin/Tazobactam 3.375 GM in Sodium Chloride 0.9% 100 ML IVPB SCH ×2 (07:20→16:23)
[2021-05-10] MEDS: Budesonide 0.5 MG/2 ML NEB NEB SCH ×2 (07:32→19:26)
[2021-05-10] MEDS ORDERED: Fluconazole In NaCl,Iso-Osm 100 MG in Premix Bag 1 BAG IVPB SCH ×2 (09:00)
[2021-05-10] MEDS: Pantoprazole 40 MG VIAL IVP SCH ×2 (09:06→21:33)
[2021-05-10] MEDS: Sodium Bicarbonate 150 MEQ in Dextrose 5% in Water 850 ML IV SCH ×2 (09:06→21:33)
[2021-05-10 11:01] LABS: Lactic Acid 1.7 mmol/L (0.5-2.2)
[2021-05-10] MEDS: Micafungin 100 MG in Sodium Chloride 0.9% 100 ML IVPB SCH (11:49)
[2021-05-10] MEDS: Sodium Acetate 2 mEq/ml 70 MEQ, Calcium Chloride 10 MEQ, Magnesium Sulfate 4.06 MEQ/ML ... IV SCH (14:52)
[2021-05-10] MEDS ORDERED: Albumin 25% 0 ML ONE (16:17)
[2021-05-10] MEDS ORDERED: Albumin 5% 250 ML ONE (16:19)
[2021-05-10 16:39] LABS: Hemoglobin 6.7 g/dL (12.0-16.0); Mean Corpuscular HGB CONC 35.2 g/dL (32.0-36.0); Mean Corpuscular Hemoglobin 32.1 pg (27.0-31.0); Mean Corpuscular Volume 91.2 fL (78.0-98.0); Mean Platelet Volume 11.3 fL (7.4-10.4); Platelet Count 43 thou/uL (130-400); RBC Distribution Width 13.9 % (11.5-14.5); Red Blood Cell (RBC) Count 2.09 mill/uL (4.20-5.40)
[2021-05-10 16:53] LABS: Anion Gap 18 mmol/L (10-20); BUN (Urea Nitrogen) 45 mg/dL (9.8-20.1); Calc. Creatinine Clearance 30 mL/min (70-130); Calcium 7.8 mg/dL (7.8-10.44); Carbon Dioxide 21 mmol/L (23-31); Chloride 108 mmol/L (98-107); Glucose 195 mg/dL (80-115); Phosphorus 5.3 mg/dL (2.3-4.7); Potassium 4.2 mmol/L (3.5-5.1); Sodium 143 mmol/L (136-145)
[2021-05-10 16:59] LABS: Band 37 % (5-11); Large Platelets SLIGHT; Lymphocytes 5 % (21-51); MDiff Complete? YES; Metamyelocyte 1 % (0-0); Monocytes 3 % (0-10); Neutrophil 54 % (42-75); Nucleated RBC 8 % (0); Platelet Morphology Comment Appears Decreased; Polychromasia SLIGHT = 2-3 cells (100X) (0-2/hpf); Vacuoles SLIGHT; White Blood Cell (WBC) Count 18.8 thou/uL (4.8-10.8)
[2021-05-10] MEDS ORDERED: Calcium Chloride 1 GM/10 ML Abboject SYRINGE IVP SCH (17:00)
[2021-05-10] MEDS ORDERED: fentaNYL Citrate/PF 2,000 MCG in Sodium Chloride 0.9% 60 ML IV PRN (17:11)
[2021-05-10] MEDS: Hydrocortisone Sod Succ/PF 100 mg/2 ml Vial IVP SCH (17:53)
[2021-05-10 19:46] LABS: Actual Bicarbonate (HCO3a) 25.9 mEq/L (22-28); Base Excess (BEa) -1.4 mEq/L (-2.0 to +3.0); Calcium, Ionized (arterial) 1.27 mmol/L (1.12-1.30); Carboxyhemoglobin (COHb) 1.2 gm% (0.0-3.0); O2 Tension (PaO2), arterial 64.2 mmHg (> 80.0); Potassium - ABG Lab 3.94 mmol/L (3.70-5.30)
[2021-05-10 19:47] LABS: CO2 Tension 63.1 mmHg (35.0-45.0); Hemoglobin (Hb) 5.3 g/dL (12.0-16.0); pH, Arterial 7.23 (7.35-7.45)
[2021-05-10 19:48] LABS: Puncture Site Arterial Line
[2021-05-10 19:50] LABS: ALV-art Gradient 56.565 mmHg (0-20)
[2021-05-11] MEDS: Piperacillin/Tazobactam 3.375 GM in Sodium Chloride 0.9% 100 ML IVPB SCH ×4 (00:27→23:24)
[2021-05-11] MEDS: Hydrocortisone Sod Succ/PF 100 mg/2 ml Vial IVP SCH ×5 (00:27→23:24)
[2021-05-11] MEDS: HumaLOG 300 UNITS/3 ML VIAL SC PRN ×4 (00:58→23:51)
[2021-05-11 01:08] LABS: Hemoglobin 8.2 g/dL (12.0-16.0); Platelet Count 81 thou/uL (130-400)
[2021-05-11 05:39] LABS: INR-International Normal Ratio 1.2; Prothrombin Time 15.6 sec (12.0-14.7)
[2021-05-11 05:56] LABS: ALT (SGPT) 223 U/L (8-55); AST (SGOT) 130 U/L (5-34); Albumin 3.1 g/dL (3.4-4.8); Alkaline Phosphatase 90 U/L (40-110); Anion Gap 17 mmol/L (10-20); BUN (Urea Nitrogen) 50 mg/dL (9.8-20.1); Bilirubin, Total 2.6 mg/dL (0.2-1.2); Calc. Creatinine Clearance 31 mL/min (70-130); Calcium 8.8 mg/dL (7.8-10.44); Carbon Dioxide 25 mmol/L (23-31); Chloride 106 mmol/L (98-107); Globulin 1.7 g/dL (2.4-3.5); Glucose 220 mg/dL (80-115); Magnesium 2.1 mg/dL (1.6-2.6); Potassium 4.2 mmol/L (3.5-5.1); Protein, Total 4.8 g/dL (5.8-8.1); Sodium 144 mmol/L (136-145)
[2021-05-11 05:59] LABS: Band 61 % (5-11); Lymphocytes 6 % (21-51); MDiff Complete? YES; Mean Corpuscular Hemoglobin 32.1 pg (27.0-31.0); Mean Corpuscular Volume 91.6 fL (78.0-98.0); Mean Platelet Volume 10.3 fL (7.4-10.4); Metamyelocyte 1 % (0-0); Monocytes 3 % (0-10); Neutrophil 29 % (42-75); Nucleated RBC 2 % (0); Platelet Count 72 thou/uL (130-400); Platelet Morphology Comment Appears Decreased; Polychromasia SLIGHT = 2-3 cells (100X) (0-2/hpf); RBC Distribution Width 13.3 % (11.5-14.5)
[2021-05-11] MEDS: Budesonide 0.5 MG/2 ML NEB NEB SCH ×2 (07:19→18:42)
[2021-05-11] MEDS: Pantoprazole 40 MG VIAL IVP SCH ×2 (08:07→20:47)
[2021-05-11] MEDS ORDERED: Fentanyl 100 MCG/2 ML VIAL ONE (09:34)
[2021-05-11] MEDS ORDERED: Norepinephrine 4 MG/4 ML VIAL ONE (10:29)
[2021-05-11] MEDS ORDERED: Rocuronium Bromide 10 MG/ML (10ML VIAL) ONE (10:29)
[2021-05-11] MEDS ORDERED: Succinylcholine 200 MG/10 ml SYRINGE FS ONE (10:29)
[2021-05-11] MEDS ORDERED: Lidocaine 1% PF 5 ML VIAL ONE (10:29)
[2021-05-11 12:27] LABS: Actual Bicarbonate (HCO3a) 25.3 mEq/L (22-28); Base Excess (BEa) 0.8 mEq/L (-2.0 to +3.0); CO2 Tension 40.2 mmHg (35.0-45.0); Calcium, Ionized (arterial) 1.15 mmol/L (1.12-1.30); Carboxyhemoglobin (COHb) 0.2 gm% (0.0-3.0); Hemoglobin (Hb) 9.3 g/dL (12.0-16.0); O2 Tension (PaO2), arterial 79.3 mmHg (> 80.0); Potassium - ABG Lab 3.84 mmol/L (3.70-5.30); Puncture Site Arterial Line; pH, Arterial 7.42 (7.35-7.45)
[2021-05-11] MEDS: Micafungin 100 MG in Sodium Chloride 0.9% 100 ML IVPB SCH (13:21)
[2021-05-11] MEDS: Sodium Bicarbonate 150 MEQ in Dextrose 5% in Water 850 ML IV SCH (14:50)
[2021-05-11] MEDS: Sodium Acetate 2 mEq/ml 70 MEQ, Calcium Chloride 10 MEQ, Magnesium Sulfate 4.06 MEQ/ML ... IV SCH (14:52)
[2021-05-12] MEDS: Sodium Bicarbonate 150 MEQ in Dextrose 5% in Water 850 ML IV SCH (01:58)
[2021-05-12] MEDS: Hydrocortisone Sod Succ/PF 100 mg/2 ml Vial IVP SCH ×4 (04:14→22:19)
[2021-05-12] MEDS: HumaLOG 300 UNITS/3 ML VIAL SC PRN ×2 (04:23→11:25)
[2021-05-12 04:47] LABS: INR-International Normal Ratio 1.1; Prothrombin Time 14.3 sec (12.0-14.7)
[2021-05-12 04:56] LABS: ALT (SGPT) 159 U/L (8-55); AST (SGOT) 65 U/L (5-34); Albumin 2.6 g/dL (3.4-4.8); Alkaline Phosphatase 143 U/L (40-110); Anion Gap 17 mmol/L (10-20); BUN (Urea Nitrogen) 59 mg/dL (9.8-20.1); Bilirubin, Total 2.4 mg/dL (0.2-1.2); Calc. Creatinine Clearance 30 mL/min (70-130); Calcium 8.9 mg/dL (7.8-10.44); Carbon Dioxide 27 mmol/L (23-31); Chloride 100 mmol/L (98-107); Globulin 2.1 g/dL (2.4-3.5); Glucose 146 mg/dL (80-115); Magnesium 2.3 mg/dL (1.6-2.6); Potassium 4.2 mmol/L (3.5-5.1); Protein, Total 4.7 g/dL (5.8-8.1); Sodium 140 mmol/L (136-145)
[2021-05-12] MEDS: Budesonide 0.5 MG/2 ML NEB NEB SCH ×2 (07:10→19:26)
[2021-05-12 07:16] LABS: Actual Bicarbonate (HCO3a) 29.8 mEq/L (22-28); Base Excess (BEa) 5.3 mEq/L (-2.0 to +3.0); CO2 Tension 43.7 mmHg (35.0-45.0); Calcium, Ionized (arterial) 1.17 mmol/L (1.12-1.30); Carboxyhemoglobin (COHb) 0.3 gm% (0.0-3.0); Hemoglobin (Hb) 9.2 g/dL (12.0-16.0); O2 Tension (PaO2), arterial 74.8 mmHg (> 80.0); Potassium - ABG Lab 4.05 mmol/L (3.70-5.30); pH, Arterial 7.45 (7.35-7.45)
[2021-05-12 07:17] LABS: ALV-art Gradient 84.475 mmHg (0-20); Puncture Site Arterial Line
[2021-05-12] MEDS ORDERED: LYTES IN TPN IVPB PRN (07:30)
[2021-05-12] MEDS: Piperacillin/Tazobactam 3.375 GM in Sodium Chloride 0.9% 100 ML IVPB SCH ×2 (08:09→17:08)
[2021-05-12] MEDS: Pantoprazole 40 MG VIAL IVP SCH ×2 (08:11→22:20)
[2021-05-12] MEDS: Micafungin 100 MG in Sodium Chloride 0.9% 100 ML IVPB SCH (11:30)
[2021-05-12] MEDS: [UNRECOGNIZED DRUG - OTHER] IV SCH (14:24)
[2021-05-12] MEDS: SODIUM CHLORIDE IV SCH (14:24)
[2021-05-12] MEDS: SODIUM ACETATE IV SCH (14:24)
[2021-05-12] MEDS: POTASSIUM CHLORIDE IV SCH (14:24)
[2021-05-12 16:44] LABS: Hemoglobin 6.9 g/dL (12.0-16.0); Mean Corpuscular HGB CONC 34.4 g/dL (32.0-36.0); Mean Corpuscular Hemoglobin 31.8 pg (27.0-31.0); Mean Corpuscular Volume 92.4 fL (78.0-98.0); Mean Platelet Volume 12.2 fL (7.4-10.4); Platelet Count 44 thou/uL (130-400); RBC Distribution Width 13.1 % (11.5-14.5); Red Blood Cell (RBC) Count 2.17 mill/uL (4.20-5.40); White Blood Cell (WBC) Count 14.7 thou/uL (4.8-10.8)
[2021-05-12 16:57] LABS: Anion Gap 19 mmol/L (10-20); BUN (Urea Nitrogen) 67 mg/dL (9.8-20.1); Calc. Creatinine Clearance 31 mL/min (70-130); Calcium 8.4 mg/dL (7.8-10.44); Carbon Dioxide 24 mmol/L (23-31); Chloride 101 mmol/L (98-107); Glucose 162 mg/dL (80-115); Magnesium 2.3 mg/dL (1.6-2.6); Phosphorus 4.7 mg/dL (2.3-4.7); Potassium 4.7 mmol/L (3.5-5.1); Sodium 139 mmol/L (136-145)
[2021-05-12 17:28] LABS: Band 75 % (5-11); Large Platelets SLIGHT; Lymphocytes 5 % (21-51); MDiff Complete? YES; Metamyelocyte 1 % (0-0); Monocytes 3 % (0-10); Myelocyte 1 % (0-0); Neutrophil 15 % (42-75); Nucleated RBC 7 % (0); Platelet Morphology Comment Appears Decreased; Polychromasia MODERATE = 3-4 cells (100X) (0-2/hpf)
[2021-05-12] MEDS ORDERED: Calcium Chloride 1 GM/10 ML Abboject SYRINGE ONE (18:28)
[2021-05-12] MEDS ORDERED: Calcium Chloride 13.6 MEQ in Sodium Chloride 0.9% 100 ML IVPB SCH (18:30)
[2021-05-12 18:58] LABS: Fibrinogen 364 mg/dL (253-463)
[2021-05-12 18:59] LABS: INR-International Normal Ratio 1.3; PTT 34.1 sec (22.9-36.1); Prothrombin Time 16.6 sec (12.0-14.7)
[2021-05-12] MEDS ORDERED: Calcium Chloride 1 GM/10 ML Abboject SYRINGE IVP SCH (19:00)
[2021-05-12 19:07] LABS: D-Dimer Test 5.04 *mcg/mL (0.27-0.43)
[2021-05-12 19:20] LABS: FSP-Qualitative ABNORMAL (Normal); FSP-Semiquantitative >=20 & <40 mcg/mL (Less than 5); Platelet Count 99 thou/uL (130-400)
[2021-05-12 19:56] LABS: Actual Bicarbonate (HCO3a) 23.8 mEq/L (22-28); Base Excess (BEa) -0.3 mEq/L (-2.0 to +3.0); CO2 Tension 36.6 mmHg (35.0-45.0); Calcium, Ionized (arterial) 1.24 mmol/L (1.12-1.30); Carboxyhemoglobin (COHb) 0.3 gm% (0.0-3.0); Hemoglobin (Hb) 9.7 g/dL (12.0-16.0); O2 Tension (PaO2), arterial 88.8 mmHg (> 80.0); Potassium - ABG Lab 4.66 mmol/L (3.70-5.30); pH, Arterial 7.43 (7.35-7.45)
[2021-05-12 19:57] LABS: Puncture Site Arterial Line
[2021-05-12 22:23] LABS: Hemoglobin 9.3 g/dL (12.0-16.0); Platelet Count 63 thou/uL (130-400)
[2021-05-13] MEDS: Piperacillin/Tazobactam 3.375 GM in Sodium Chloride 0.9% 100 ML IVPB SCH ×4 (00:09→23:53)
[2021-05-13 02:52] LABS: Band 52 % (5-11); Hemoglobin 8.7 g/dL (12.0-16.0); Large Platelets SLIGHT; Lymphocytes 7 % (21-51); MDiff Complete? YES; Mean Corpuscular HGB CONC 35.9 g/dL (32.0-36.0); Mean Corpuscular Hemoglobin 32.7 pg (27.0-31.0); Metamyelocyte 5 % (0-0); Monocytes 4 % (0-10); Myelocyte 5 % (0-0); Neutrophil 25 % (42-75); Nucleated RBC 7 % (0); Platelet Count 41 thou/uL (130-400); Platelet Morphology Comment Appears Decreased; Polychromasia SLIGHT = 2-3 cells (100X) (0-2/hpf); RBC Distribution Width 12.4 % (11.5-14.5); Reactive Lymphocytes 2 % (0-10); Red Blood Cell (RBC) Count 2.67 mill/uL (4.20-5.40); White Blood Cell (WBC) Count 20.3 thou/uL (4.8-10.8)
[2021-05-13 03:13] LABS: Anion Gap 19 mmol/L (10-20); BUN (Urea Nitrogen) 70 mg/dL (9.8-20.1); Calc. Creatinine Clearance 29 mL/min (70-130); Calcium 9.8 mg/dL (7.8-10.44); Carbon Dioxide 24 mmol/L (23-31); Chloride 101 mmol/L (98-107); Glucose 182 mg/dL (80-115); Magnesium 2.4 mg/dL (1.6-2.6); Sodium 139 mmol/L (136-145)
[2021-05-13] MEDS: HumaLOG 300 UNITS/3 ML VIAL SC PRN ×2 (04:32→13:25)
[2021-05-13] MEDS: Hydrocortisone Sod Succ/PF 100 mg/2 ml Vial IVP SCH ×4 (05:15→23:52)
[2021-05-13] MEDS: Budesonide 0.5 MG/2 ML NEB NEB SCH ×2 (06:42→18:39)
[2021-05-13 07:15] LABS: Actual Bicarbonate (HCO3a) 24.7 mEq/L (22-28); Base Excess (BEa) 0.7 mEq/L (-2.0 to +3.0); CO2 Tension 36.8 mmHg (35.0-45.0); Calcium, Ionized (arterial) 1.23 mmol/L (1.12-1.30); Carboxyhemoglobin (COHb) 0.8 gm% (0.0-3.0); O2 Tension (PaO2), arterial 61.3 mmHg (> 80.0); Potassium - ABG Lab 4.81 mmol/L (3.70-5.30); pH, Arterial 7.45 (7.35-7.45)
[2021-05-13 07:16] LABS: Puncture Site Arterial Line
[2021-05-13] MEDS: Pantoprazole 40 MG VIAL IVP SCH ×2 (08:28→21:21)
[2021-05-13 08:50] LABS: Fibrinogen 435 mg/dL (253-463); Hemoglobin 8.6 g/dL (12.0-16.0); Platelet Count 34 thou/uL (130-400)
[2021-05-13 08:51] LABS: INR-International Normal Ratio 1.4; Prothrombin Time 17.1 sec (12.0-14.7)
[2021-05-13] MEDS ORDERED: Fentanyl CADD 100 ML ONE (08:52)
[2021-05-13 08:59] LABS: D-Dimer Test 5.95 *mcg/mL (0.27-0.43)
[2021-05-13] MEDS ORDERED: fentaNYL Citrate/PF 2,000 MCG in Sodium Chloride 0.9% 60 ML IV PRN (09:00)
[2021-05-13 09:24] LABS: FSP-Qualitative ABNORMAL (Normal); FSP-Semiquantitative >=40 & <80 mcg/mL (Less than 5)
[2021-05-13] MEDS: Micafungin 100 MG in Sodium Chloride 0.9% 100 ML IVPB SCH (11:49)
[2021-05-13] MEDS ORDERED: Desmopressin Acetate 4 mcg/ml (1ml Chg) 10ml Vial SC SCH (12:00)
[2021-05-13] MEDS ORDERED: SODIUM ACETATE IV SCH (14:00)
[2021-05-13] MEDS ORDERED: POTASSIUM CHLORIDE IV SCH (14:00)
[2021-05-13] MEDS ORDERED: SODIUM CHLORIDE IV SCH (14:00)
[2021-05-13] MEDS ORDERED: [UNRECOGNIZED DRUG - OTHER] IV SCH (14:00)
[2021-05-13 14:47] LABS: Hemoglobin 8.2 g/dL (12.0-16.0); Mean Corpuscular HGB CONC 35.7 g/dL (32.0-36.0); Mean Corpuscular Hemoglobin 32.7 pg (27.0-31.0); Mean Corpuscular Volume 91.4 fL (78.0-98.0); Mean Platelet Volume 9.8 fL (7.4-10.4); Platelet Count 75 thou/uL (130-400); RBC Distribution Width 12.7 % (11.5-14.5)
[2021-05-13 14:56] LABS: Anion Gap 20 mmol/L (10-20); BUN (Urea Nitrogen) 82 mg/dL (9.8-20.1); Calc. Creatinine Clearance 28 mL/min (70-130); Calcium 9.5 mg/dL (7.8-10.44); Carbon Dioxide 23 mmol/L (23-31); Chloride 99 mmol/L (98-107); Fibrinogen 506 mg/dL (253-463); Glucose 171 mg/dL (80-115); INR-International Normal Ratio 1.4; Potassium 5.1 mmol/L (3.5-5.1); Prothrombin Time 16.8 sec (12.0-14.7); Sodium 137 mmol/L (136-145)
[2021-05-13 15:04] LABS: D-Dimer Test 5.92 *mcg/mL (0.27-0.43)
[2021-05-13 15:06] LABS: Anisocytosis SLIGHT = 6-15 cells (100X) (0-5/hpf); Band 76 % (5-11); Lymphocytes 5 % (21-51); MDiff Complete? YES; Metamyelocyte 1 % (0-0); Monocytes 8 % (0-10); Myelocyte 2 % (0-0); Neutrophil 7 % (42-75); Nucleated RBC 4 % (0); Platelet Morphology Comment Appears Decreased; Polychromasia MODERATE = 3-4 cells (100X) (0-2/hpf); Reactive Lymphocytes 1 % (0-10); White Blood Cell (WBC) Count 21.1 thou/uL (4.8-10.8)
[2021-05-13] MEDS: [UNRECOGNIZED DRUG - OTHER] IV SCH (15:10)
[2021-05-13] MEDS: POTASSIUM CHLORIDE IV SCH (15:10)
[2021-05-13] MEDS: SODIUM CHLORIDE IV SCH (15:10)
[2021-05-13] MEDS: SODIUM ACETATE IV SCH (15:10)
[2021-05-13 15:28] LABS: FSP-Qualitative ABNORMAL (Normal); FSP-Semiquantitative >=20 & <40 mcg/mL (Less than 5); Platelet Count 75 thou/uL (130-400)
[2021-05-13 20:34] LABS: Hemoglobin 8.1 g/dL (12.0-16.0); Platelet Count 63 thou/uL (130-400)
[2021-05-14 04:01] LABS: Hemoglobin 7.7 g/dL (12.0-16.0); Platelet Count 54 thou/uL (130-400)
[2021-05-14] MEDS: HumaLOG 300 UNITS/3 ML VIAL SC PRN ×3 (04:49→22:11)
[2021-05-14] MEDS: Hydrocortisone Sod Succ/PF 100 mg/2 ml Vial IVP SCH ×4 (05:43→23:19)
[2021-05-14] MEDS: Budesonide 0.5 MG/2 ML NEB NEB SCH ×2 (06:51→18:15)
[2021-05-14 07:15] LABS: Actual Bicarbonate (HCO3a) 26.2 mEq/L (22-28); Base Excess (BEa) 1.7 mEq/L (-2.0 to +3.0); CO2 Tension 40.4 mmHg (35.0-45.0); Calcium, Ionized (arterial) 1.23 mmol/L (1.12-1.30); Carboxyhemoglobin (COHb) 0.5 gm% (0.0-3.0); Hemoglobin (Hb) 8.1 g/dL (12.0-16.0); O2 Tension (PaO2), arterial 92.8 mmHg (> 80.0); Potassium - ABG Lab 5.22 mmol/L (3.70-5.30); pH, Arterial 7.43 (7.35-7.45)
[2021-05-14 07:20] LABS: Puncture Site Arterial Line
[2021-05-14 08:54] LABS: Hemoglobin 7.8 g/dL (12.0-16.0); Mean Corpuscular HGB CONC 35.6 g/dL (32.0-36.0); Mean Corpuscular Hemoglobin 33.1 pg (27.0-31.0); Mean Platelet Volume 12.9 fL (7.4-10.4); Platelet Count 50 thou/uL (130-400); RBC Distribution Width 12.9 % (11.5-14.5); Red Blood Cell (RBC) Count 2.35 mill/uL (4.20-5.40); White Blood Cell (WBC) Count 22.3 thou/uL (4.8-10.8)
[2021-05-14 09:03] LABS: Anion Gap 19 mmol/L (10-20); BUN (Urea Nitrogen) 93 mg/dL (9.8-20.1); Calc. Creatinine Clearance 27 mL/min (70-130); Calcium 9.3 mg/dL (7.8-10.44); Carbon Dioxide 24 mmol/L (23-31); Chloride 99 mmol/L (98-107); Glucose 158 mg/dL (80-115); Potassium 5.4 mmol/L (3.5-5.1); Sodium 137 mmol/L (136-145)
[2021-05-14 09:16] LABS: Phosphorus 4.4 mg/dL (2.3-4.7)
[2021-05-14 09:40] LABS: Band 41 % (5-11); Large Platelets SLIGHT; Lymphocytes 8 % (21-51); MDiff Complete? YES; Metamyelocyte 4 % (0-0); Monocytes 4 % (0-10); Myelocyte 3 % (0-0); Neutrophil 40 % (42-75); Nucleated RBC 8 % (0); Platelet Morphology Comment Appears Decreased; Polychromasia SLIGHT = 2-3 cells (100X) (0-2/hpf); Toxic Granulation SLIGHT; Vacuoles SLIGHT
[2021-05-14] MEDS: Pantoprazole 40 MG VIAL IVP SCH ×2 (09:55→21:02)
[2021-05-14] MEDS: Piperacillin/Tazobactam 3.375 GM in Sodium Chloride 0.9% 100 ML IVPB SCH ×3 (09:55→23:19)
[2021-05-14] MEDS: Micafungin 100 MG in Sodium Chloride 0.9% 100 ML IVPB SCH (11:43)
[2021-05-14] MEDS ORDERED: Fentanyl CADD 100 ML ONE ×2 (11:54→22:54)
[2021-05-14] MEDS ORDERED: Insulin Regular 300 UNITS/3 ML VIAL IVP SCH (12:00)
[2021-05-14] MEDS ORDERED: Furosemide 100 MG/10 ML VIAL SLOW IVP SCH (12:00)
[2021-05-14] MEDS ORDERED: Dextrose 50% Abboject 50 ML SYRINGE SLOW IVP SCH (12:00)
[2021-05-14] MEDS: SODIUM CHLORIDE IV SCH (14:33)
[2021-05-14] MEDS: SODIUM ACETATE IV SCH (14:33)
[2021-05-14] MEDS: [UNRECOGNIZED DRUG - OTHER] IV SCH (14:33)
[2021-05-14] MEDS: CALCIUM GLUCONATE IV SCH (14:33)
[2021-05-14 17:30] LABS: Bilirubin Negative (Negative); Blood, Urine 2+ (Negative); Clarity Turbid (Clear); Glucose, Urine (Dipstick) 30 mg/dL (Negative); Ketone, Urine Negative (Negative); Leukocyte 250 Leu/uL (Negative); Nitrite Negative (Negative); Protein, Urine (Dipstick) 50 mg/dL (Neg-Trace); Specific Gravity, Urine 1.015 (1.002-1.036); Squamous Epithelial None Seen HPF (0-3); Urobilinogen Normal mg/dL (Less than 2); WBC/HPF 21-50 HPF (0-3)
[2021-05-14 17:35] LABS: Bacteria/HPF 1+ HPF (None Seen); Yeast-Budding 3+ HPF (None Seen)
[2021-05-14 17:42] LABS: Creatinine, Urine 23.28 mg/dL (47-110)
[2021-05-14 19:28] LABS: Albumin 2.4 g/dL (3.4-4.8); Anion Gap 21 mmol/L (10-20); BUN (Urea Nitrogen) 102 mg/dL (9.8-20.1); BUN/Creatinine Ratio 26.98; Calc. Creatinine Clearance 26 mL/min (70-130); Calcium 9.2 mg/dL (7.8-10.44); Carbon Dioxide 22 mmol/L (23-31); Chloride 98 mmol/L (98-107); Glucose 150 mg/dL (80-115); Phosphorus 4.6 mg/dL (2.3-4.7); Potassium 5.4 mmol/L (3.5-5.1); Sodium 136 mmol/L (136-145)
[2021-05-14] MEDS: Albumin 25% 25 GM/100 ML BOT IVPB SCH (21:02)
[2021-05-14] MEDS: Furosemide 100 MG/10 ML VIAL SLOW IVP SCH (21:02)
[2021-05-14] MEDS: Fentanyl CADD 100 ML IV SCH (23:00)
[2021-05-15] MEDS: Albumin 25% 25 GM/100 ML BOT IVPB SCH (03:27)
[2021-05-15] MEDS: HumaLOG 300 UNITS/3 ML VIAL SC PRN ×3 (03:42→23:16)
[2021-05-15 05:03] LABS: Anion Gap 21 mmol/L (10-20); BUN (Urea Nitrogen) 116 mg/dL (9.8-20.1); Calc. Creatinine Clearance 25 mL/min (70-130); Calcium 9.6 mg/dL (7.8-10.44); Carbon Dioxide 23 mmol/L (23-31); Chloride 96 mmol/L (98-107); Glucose 173 mg/dL (80-115); Potassium 5.3 mmol/L (3.5-5.1); Sodium 135 mmol/L (136-145)
[2021-05-15] MEDS: Hydrocortisone Sod Succ/PF 100 mg/2 ml Vial IVP SCH ×4 (05:16→23:19)
[2021-05-15] MEDS: Furosemide 100 MG/10 ML VIAL SLOW IVP SCH (05:16)
[2021-05-15 05:31] LABS: Band 47 % (5-11); Hemoglobin 6.8 g/dL (12.0-16.0); Large Platelets SLIGHT; Lymphocytes 6 % (21-51); MDiff Complete? YES; Mean Corpuscular HGB CONC 33.9 g/dL (32.0-36.0); Mean Corpuscular Hemoglobin 32.6 pg (27.0-31.0); Mean Corpuscular Volume 96.2 fL (78.0-98.0); Mean Platelet Volume 13.9 fL (7.4-10.4); Metamyelocyte 2 % (0-0); Monocytes 5 % (0-10); Myelocyte 2 % (0-0); Neutrophil 38 % (42-75); Nucleated RBC 7 % (0); Platelet Count 44 thou/uL (130-400); Platelet Morphology Comment Appears Decreased; Polychromasia SLIGHT = 2-3 cells (100X) (0-2/hpf); RBC Distribution Width 13.5 % (11.5-14.5); Red Blood Cell (RBC) Count 2.09 mill/uL (4.20-5.40); White Blood Cell (WBC) Count 18.3 thou/uL (4.8-10.8)
[2021-05-15] MEDS: Budesonide 0.5 MG/2 ML NEB NEB SCH ×2 (07:00→18:48)
[2021-05-15 07:23] LABS: Actual Bicarbonate (HCO3a) 24.2 mEq/L (22-28); Base Excess (BEa) -0.6 mEq/L (-2.0 to +3.0); CO2 Tension 40.3 mmHg (35.0-45.0); Calcium, Ionized (arterial) 1.23 mmol/L (1.12-1.30); Carboxyhemoglobin (COHb) 1.1 gm% (0.0-3.0); Hemoglobin (Hb) 6.8 g/dL (12.0-16.0); O2 Tension (PaO2), arterial 74.7 mmHg (> 80.0); Potassium - ABG Lab 5.18 mmol/L (3.70-5.30)
[2021-05-15 07:25] LABS: ALV-art Gradient 88.825 mmHg (0-20); Puncture Site Arterial Line
[2021-05-15] MEDS: Piperacillin/Tazobactam 3.375 GM in Sodium Chloride 0.9% 100 ML IVPB SCH ×3 (08:26→23:20)
[2021-05-15] MEDS: Pantoprazole 40 MG VIAL IVP SCH ×2 (08:27→21:20)
[2021-05-15] MEDS: Saccharomyces boulardii 250 MG CAP PO SCH (09:07)
[2021-05-15] MEDS ORDERED: Fentanyl CADD 100 ML ONE ×2 (10:22→17:36)
[2021-05-15 11:20] LABS: HBSAg Index 0.23 S/CO (0-0.99); Hep B Core Total Ab Non-Reactive (NonReactive); Hep B Core Total Index 0.07 S/CO (0-0.79); Hep B Surf Ag Non-Reactive S/CO (NonReactive); Hep C IgG Ab Non-Reactive (NonReactive); Hep C Index 0.04 S/CO (0-0.79)
[2021-05-15 11:26] LABS: Hep B Surf AB Reactive (NonReactive)
[2021-05-15] MEDS: Micafungin 100 MG in Sodium Chloride 0.9% 100 ML IVPB SCH (12:25)
[2021-05-15] MEDS: SODIUM ACETATE IV SCH (13:44)
[2021-05-15] MEDS: [UNRECOGNIZED DRUG - OTHER] IV SCH (13:44)
[2021-05-15] MEDS: CALCIUM GLUCONATE IV SCH (13:44)
[2021-05-15] MEDS: SODIUM CHLORIDE IV SCH (13:44)
[2021-05-15 13:57] LABS: Actual Bicarbonate (HCO3v) 22 mEq/L (22-28); Analyzer IN Cardio OR; Base Excess -2.3 mEq/L (-2.0 to +3.0); Calcium, Ionized (venous) 1.45 mmol/L (1.16-1.32); Chloride (VBG) 105 mmol/L (98-106); Potassium (VBG) 3.68 mmol/L (3.70-5.30); Sodium 131.5 mmol/L (133-146)
[2021-05-15 13:57] LABS: Actual Bicarbonate (HCO3v) 19 mEq/L (22-28); Analyzer IN Cardio OR; Base Excess -4.8 mEq/L (-2.0 to +3.0); Chloride (VBG) 105 mmol/L (98-106); Potassium (VBG) 3.66 mmol/L (3.70-5.30); Sodium 128.1 mmol/L (133-146); pH (venous) 7.41 (7.32-7.43)
[2021-05-15] MEDS: Fentanyl CADD 100 ML IV SCH (17:40)
[2021-05-16] MEDS ORDERED: Fentanyl CADD 100 ML ONE ×3 (03:18→21:46)
[2021-05-16] MEDS: Fentanyl CADD 100 ML IV SCH ×3 (03:22→21:49)
[2021-05-16 04:09] LABS: Phosphorus 3.9 mg/dL (2.3-4.7)
[2021-05-16 04:12] LABS: Anion Gap 19 mmol/L (10-20); BUN (Urea Nitrogen) 98 mg/dL (9.8-20.1); Calc. Creatinine Clearance 31 mL/min (70-130); Calcium 9.4 mg/dL (7.8-10.44); Carbon Dioxide 26 mmol/L (23-31); Chloride 97 mmol/L (98-107); Glucose 166 mg/dL (80-115); Magnesium 2.4 mg/dL (1.6-2.6); Potassium 4.4 mmol/L (3.5-5.1); Sodium 138 mmol/L (136-145)
[2021-05-16] MEDS: Hydrocortisone Sod Succ/PF 100 mg/2 ml Vial IVP SCH ×3 (04:13→21:19)
[2021-05-16 04:39] LABS: Band 40 % (5-11); Lymphocytes 7 % (21-51); MDiff Complete? YES; Mean Corpuscular HGB CONC 34.7 g/dL (32.0-36.0); Mean Corpuscular Hemoglobin 32.6 pg (27.0-31.0); Mean Corpuscular Volume 93.8 fL (78.0-98.0); Monocytes 5 % (0-10); Myelocyte 1 % (0-0); Neutrophil 47 % (42-75); Platelet Count 50 thou/uL (130-400); Platelet Morphology Comment Appears Decreased; RBC Distribution Width 14.2 % (11.5-14.5); Red Blood Cell (RBC) Count 2.46 mill/uL (4.20-5.40); White Blood Cell (WBC) Count 22.8 thou/uL (4.8-10.8)
[2021-05-16] MEDS: HumaLOG 300 UNITS/3 ML VIAL SC PRN (04:59)
[2021-05-16] MEDS: Budesonide 0.5 MG/2 ML NEB NEB SCH ×2 (07:17→18:41)
[2021-05-16 07:41] LABS: Actual Bicarbonate (HCO3a) 27.5 mEq/L (22-28); Base Excess (BEa) 1.8 mEq/L (-2.0 to +3.0); CO2 Tension 48.7 mmHg (35.0-45.0); Calcium, Ionized (arterial) 1.23 mmol/L (1.12-1.30); Carboxyhemoglobin (COHb) 0.5 gm% (0.0-3.0); Hemoglobin (Hb) 8.6 g/dL (12.0-16.0); O2 Tension (PaO2), arterial 74.7 mmHg (> 80.0); Potassium - ABG Lab 4.29 mmol/L (3.70-5.30); pH, Arterial 7.37 (7.35-7.45)
[2021-05-16 07:42] LABS: ALV-art Gradient 78.325 mmHg (0-20); Puncture Site Arterial Line
[2021-05-16 14:22] VITALS: BMI 42.7
[2021-05-16] MEDS: Micafungin 100 MG in Sodium Chloride 0.9% 100 ML IVPB SCH (14:39)
[2021-05-16] MEDS: CALCIUM GLUCONATE IV SCH (14:41)
[2021-05-16] MEDS: SODIUM CHLORIDE IV SCH (14:41)
[2021-05-16] MEDS: [UNRECOGNIZED DRUG - OTHER] IV SCH (14:41)
[2021-05-16] MEDS: SODIUM ACETATE IV SCH (14:41)
[2021-05-16] MEDS: Saccharomyces boulardii 250 MG CAP PO SCH (15:09)
[2021-05-16 16:19] LABS: Albumin 2.6 g/dL (3.4-4.8); Anion Gap 14 mmol/L (10-20); BUN (Urea Nitrogen) 56 mg/dL (9.8-20.1); BUN/Creatinine Ratio 29.47; Calc. Creatinine Clearance 51 mL/min (70-130); Calcium 8.9 mg/dL (7.8-10.44); Carbon Dioxide 32 mmol/L (23-31); Chloride 96 mmol/L (98-107); Glucose 143 mg/dL (80-115); Magnesium 2.1 mg/dL (1.6-2.6); Phosphorus 2.9 mg/dL (2.3-4.7); Potassium 3.5 mmol/L (3.5-5.1); Sodium 138 mmol/L (136-145)
[2021-05-16] MEDS: Piperacillin/Tazobactam 3.375 GM in Sodium Chloride 0.9% 100 ML IVPB SCH (16:37)
[2021-05-16] MEDS: Pantoprazole 40 MG VIAL IVP SCH ×2 (16:53→21:20)
[2021-05-16 19:49] LABS: Hemoglobin 7.8 g/dL (12.0-16.0); Mean Corpuscular HGB CONC 33.6 g/dL (32.0-36.0); Mean Corpuscular Hemoglobin 31.8 pg (27.0-31.0); Mean Corpuscular Volume 94.6 fL (78.0-98.0); Mean Platelet Volume 14.2 fL (7.4-10.4); Platelet Count 56 thou/uL (130-400); RBC Distribution Width 13.6 % (11.5-14.5); Red Blood Cell (RBC) Count 2.46 mill/uL (4.20-5.40); White Blood Cell (WBC) Count 21.5 thou/uL (4.8-10.8)
[2021-05-16 20:06] LABS: Band 22 % (5-11); Hypochromia SLIGHT = 6-15 cells (100X) (0-5/hpf); Lymphocytes 11 % (21-51); MDiff Complete? YES; Monocytes 2 % (0-10); Neutrophil 65 % (42-75); Nucleated RBC 10 % (0); Platelet Morphology Comment Appears Decreased
[2021-05-16 20:11] LABS: ALT (SGPT) 614 U/L (8-55); AST (SGOT) 312 U/L (5-34); Albumin 2.4 g/dL (3.4-4.8); Alkaline Phosphatase 209 U/L (40-110); Bilirubin, Total 2.6 mg/dL (0.2-1.2); Protein, Total 4.8 g/dL (5.8-8.1)
[2021-05-17] MEDS: Piperacillin/Tazobactam 3.375 GM in Sodium Chloride 0.9% 100 ML IVPB SCH ×3 (01:58→23:16)
[2021-05-17 04:48] LABS: Anion Gap 11 mmol/L (10-20); BUN (Urea Nitrogen) 69 mg/dL (9.8-20.1); Calc. Creatinine Clearance 44 mL/min (70-130); Calcium 8.7 mg/dL (7.8-10.44); Carbon Dioxide 32 mmol/L (23-31); Chloride 97 mmol/L (98-107); Glucose 165 mg/dL (80-115); Potassium 3.3 mmol/L (3.5-5.1); Sodium 137 mmol/L (136-145)
[2021-05-17 04:50] LABS: Band 39 % (5-11); Hemoglobin 7.3 g/dL (12.0-16.0); Hypochromia SLIGHT = 6-15 cells (100X) (0-5/hpf); Lymphocytes 5 % (21-51); MDiff Complete? YES; Mean Corpuscular HGB CONC 34.6 g/dL (32.0-36.0); Mean Corpuscular Hemoglobin 33.2 pg (27.0-31.0); Mean Platelet Volume 12.8 fL (7.4-10.4); Monocytes 6 % (0-10); Neutrophil 50 % (42-75); Nucleated RBC 2 % (0); Platelet Count 57 thou/uL (130-400); Platelet Morphology Comment Appears Decreased; Red Blood Cell (RBC) Count 2.18 mill/uL (4.20-5.40); White Blood Cell (WBC) Count 23.2 thou/uL (4.8-10.8)
[2021-05-17] MEDS: HumaLOG 300 UNITS/3 ML VIAL SC PRN (05:37)
[2021-05-17 06:47] LABS: Actual Bicarbonate (HCO3a) 30.3 mEq/L (22-28); Base Excess (BEa) 5.8 mEq/L (-2.0 to +3.0); CO2 Tension 44.3 mmHg (35.0-45.0); Calcium, Ionized (arterial) 1.14 mmol/L (1.12-1.30); Carboxyhemoglobin (COHb) 0.8 gm% (0.0-3.0); Hemoglobin (Hb) 7.6 g/dL (12.0-16.0); O2 Tension (PaO2), arterial 70.1 mmHg (> 80.0); Potassium - ABG Lab 3.28 mmol/L (3.70-5.30); pH, Arterial 7.45 (7.35-7.45)
[2021-05-17] MEDS: Budesonide 0.5 MG/2 ML NEB NEB SCH ×2 (06:57→21:37)
[2021-05-17] MEDS ORDERED: Fentanyl CADD 100 ML ONE (07:12)
[2021-05-17] MEDS ORDERED: Potassium Chloride 40 MEQ in Sodium Chloride 0.9% 250 ML 250 ML IVPB SCH (07:30)
[2021-05-17] MEDS: Saccharomyces boulardii 250 MG CAP PO SCH (08:13)
[2021-05-17] MEDS ORDERED: Albumin 25% 25 GM/100 ML BOT IVPB SCH (08:15)
[2021-05-17] MEDS: Hydrocortisone Sod Succ/PF 100 mg/2 ml Vial IVP SCH ×2 (12:01→20:18)
[2021-05-17] MEDS: Pantoprazole 40 MG VIAL IVP SCH ×2 (12:10→20:18)
[2021-05-17] MEDS: Micafungin 100 MG in Sodium Chloride 0.9% 100 ML IVPB SCH (12:10)
[2021-05-17 14:16] LABS: ALV-art Gradient 88.425 mmHg (0-20); Puncture Site RRA
[2021-05-17] MEDS ORDERED: Norepinephrine 8 MG/0.9% NS 250 ML ONE ×2 (16:48→20:10)
[2021-05-17 16:55] LABS: Hemoglobin 5.8 g/dL (12.0-16.0); Mean Corpuscular HGB CONC 33.9 g/dL (32.0-36.0); Mean Corpuscular Hemoglobin 32.6 pg (27.0-31.0); Mean Corpuscular Volume 96.3 fL (78.0-98.0); Mean Platelet Volume 14.7 fL (7.4-10.4); Platelet Count 57 thou/uL (130-400); RBC Distribution Width 16.2 % (11.5-14.5); Red Blood Cell (RBC) Count 1.77 mill/uL (4.20-5.40)
[2021-05-17 17:03] LABS: INR-International Normal Ratio 1.2; Prothrombin Time 15.4 sec (12.0-14.7)
[2021-05-17 17:04] LABS: PTT 29.1 sec (22.9-36.1)
[2021-05-17 17:10] LABS: Anion Gap 11 mmol/L (10-20); BUN (Urea Nitrogen) 49 mg/dL (9.8-20.1); Calc. Creatinine Clearance 58 mL/min (70-130); Calcium 8.6 mg/dL (7.8-10.44); Carbon Dioxide 31 mmol/L (23-31); Chloride 99 mmol/L (98-107); Glucose 148 mg/dL (80-115); Potassium 3.9 mmol/L (3.5-5.1); Sodium 137 mmol/L (136-145)
[2021-05-17 17:15] LABS: Anisocytosis SLIGHT = 6-15 cells (100X) (0-5/hpf); Band 30 % (5-11); Basophilic Stippling SLIGHT = 1-2 cells (100X) (None Seen); Eosinophils 1 % (0-10); Large Platelets SLIGHT; Lymphocytes 6 % (21-51); MDiff Complete? YES; Monocytes 1 % (0-10); Neutrophil 62 % (42-75); Nucleated RBC 8 % (0); Platelet Morphology Comment Appears Decreased; Polychromasia MODERATE = 3-4 cells (100X) (0-2/hpf); White Blood Cell (WBC) Count 18.1 thou/uL (4.8-10.8)
[2021-05-17 17:43] LABS: FSP-Qualitative ABNORMAL (Normal); FSP-Semiquantitative >=20 & <40 mcg/mL (Less than 5)
[2021-05-17 17:44] LABS: Fibrinogen 418 mg/dL (253-463)
[2021-05-17] MEDS: [UNRECOGNIZED DRUG - OTHER] IV SCH (19:33)
[2021-05-17] MEDS: SODIUM ACETATE IV SCH (19:33)
[2021-05-17] MEDS: CALCIUM GLUCONATE IV SCH (19:33)
[2021-05-17] MEDS: EPINEPHrine 4 MG in Dextrose 5% in Water 250 ML IV SCH ×4 (19:33→23:16)
[2021-05-17] MEDS: SODIUM CHLORIDE IV SCH (19:33)
[2021-05-17 20:56] LABS: Hemoglobin 8.8 g/dL (12.0-16.0); Mean Corpuscular HGB CONC 33.9 g/dL (32.0-36.0); Mean Corpuscular Volume 94.5 fL (78.0-98.0); Mean Platelet Volume 9.1 fL (7.4-10.4); Platelet Count 69 thou/uL (130-400); RBC Distribution Width 13.9 % (11.5-14.5); Red Blood Cell (RBC) Count 2.75 mill/uL (4.20-5.40); White Blood Cell (WBC) Count 19.2 thou/uL (4.8-10.8)
[2021-05-17 21:06] LABS: INR-International Normal Ratio 1.6; Prothrombin Time 19.4 sec (12.0-14.7)
[2021-05-17 21:07] LABS: PTT 37.9 sec (22.9-36.1)
[2021-05-17 21:16] LABS: D-Dimer Test 13.5 *mcg/mL (0.27-0.43)
[2021-05-17 21:20] LABS: Band 1 % (5-11); Lymphocytes 11 % (21-51); MDiff Complete? YES; Metamyelocyte 5 % (0-0); Neutrophil 81 % (42-75); Nucleated RBC 3 % (0); Platelet Morphology Comment Appears Decreased; Reactive Lymphocytes 2 % (0-10)
[2021-05-17 22:12] LABS: Actual Bicarbonate (HCO3a) 16.6 mEq/L (22-28); Base Excess (BEa) -11.3 mEq/L (-2.0 to +3.0); CO2 Tension 46.8 mmHg (35.0-45.0); Calcium, Ionized (arterial) 1.01 mmol/L (1.12-1.30); Carboxyhemoglobin (COHb) 1.4 gm% (0.0-3.0)
[2021-05-17 22:14] LABS: pH, Arterial 7.17 (7.35-7.45)
[2021-05-17 22:15] LABS: O2 Tension (PaO2), arterial 42.3 mmHg (> 80.0); Puncture Site Other Site
[2021-05-17 22:36] LABS: ALT (SGPT) 298 U/L (8-55); AST (SGOT) 307 U/L (5-34); Albumin 2.4 g/dL (3.4-4.8); Alkaline Phosphatase 108 U/L (40-110); Anion Gap 21 mmol/L (10-20); BUN (Urea Nitrogen) 47 mg/dL (9.8-20.1); Bilirubin, Total 3.7 mg/dL (0.2-1.2); Calc. Creatinine Clearance 52 mL/min (70-130); Calcium 7.7 mg/dL (7.8-10.44); Carbon Dioxide 17 mmol/L (23-31); Chloride 102 mmol/L (98-107); Globulin 1.9 g/dL (2.4-3.5); Glucose 190 mg/dL (80-115); Magnesium 1.9 mg/dL (1.6-2.6); Protein, Total 4.3 g/dL (5.8-8.1); Sodium 135 mmol/L (136-145)
[2021-05-17] MEDS ORDERED: Calcium Chloride 1 GM/10 ML Abboject SYRINGE IVP SCH (23:00)
[2021-05-17] MEDS: Sodium Bicarb 50 MEQ/50 ML Abboject 8.4% SYRINGE IVP SCH (23:16)
[2021-05-17] MEDS: Norepinephrine 8 MG/0.9% NS 250 ML IVPB PRN (23:29)
[2021-05-18] MEDS ORDERED: Fentanyl CADD 100 ML ONE (00:29)
[2021-05-18] MEDS: Fentanyl CADD 100 ML IV SCH (00:32)
[2021-05-18] MEDS: Sodium Bicarb 50 MEQ/50 ML Abboject 8.4% SYRINGE IVP SCH ×3 (01:47→10:07)
[2021-05-18 02:15] VITALS: BP 81/53
[2021-05-18] MEDS: EPINEPHrine 4 MG in Dextrose 5% in Water 250 ML IV SCH ×2 (03:31→06:25)
[2021-05-18] MEDS: Norepinephrine 8 MG/0.9% NS 250 ML IVPB PRN ×2 (03:32→09:29)
[2021-05-18 04:44] LABS: Anion Gap 25 mmol/L (10-20); BUN (Urea Nitrogen) 46 mg/dL (9.8-20.1); Calc. Creatinine Clearance 49 mL/min (70-130); Calcium 7.9 mg/dL (7.8-10.44); Carbon Dioxide 16 mmol/L (23-31); Chloride 101 mmol/L (98-107); Glucose 148 mg/dL (80-115); Potassium 5.8 mmol/L (3.5-5.1); Sodium 136 mmol/L (136-145)
[2021-05-18 04:48] LABS: Hemoglobin 4.6 g/dL (12.0-16.0)
[2021-05-18 05:02] LABS: Band 56 % (5-11); Basophilic Stippling MODERATE = 3-5 cells (100X) (None Seen); Lymphocytes 4 % (21-51); MDiff Complete? YES; Mean Corpuscular HGB CONC 33.8 g/dL (32.0-36.0); Mean Corpuscular Hemoglobin 32.7 pg (27.0-31.0); Mean Corpuscular Volume 96.6 fL (78.0-98.0); Mean Platelet Volume 10.2 fL (7.4-10.4); Metamyelocyte 3 % (0-0); Microcytosis SLIGHT = 6-15 cells (100X) (0-5/hpf); Monocytes 5 % (0-10); Myelocyte 1 % (0-0); Neutrophil 31 % (42-75); Nucleated RBC 5 % (0); Platelet Count 51 thou/uL (130-400); Platelet Morphology Comment Appears Decreased; Polychromasia MODERATE = 3-4 cells (100X) (0-2/hpf); RBC Distribution Width 14.1 % (11.5-14.5); Red Blood Cell (RBC) Count 1.42 mill/uL (4.20-5.40)
[2021-05-18] MEDS: Budesonide 0.5 MG/2 ML NEB NEB SCH (06:54)
[2021-05-18 07:01] LABS: Actual Bicarbonate (HCO3a) 15.2 mEq/L (22-28); Base Excess (BEa) -10.7 mEq/L (-2.0 to +3.0); CO2 Tension 34.2 mmHg (35.0-45.0); Calcium, Ionized (arterial) 0.98 mmol/L (1.12-1.30); Carboxyhemoglobin (COHb) 0.3 gm% (0.0-3.0); Hemoglobin (Hb) 9.3 g/dL (12.0-16.0); O2 Tension (PaO2), arterial 111.2 mmHg (> 80.0); Potassium - ABG Lab 5.28 mmol/L (3.70-5.30); pH, Arterial 7.27 (7.35-7.45)
[2021-05-18 07:28] LABS: Puncture Site LRA
[2021-05-18] MEDS ORDERED: Sodium Chloride 0.9% 1,000 ML IV SCH (07:45)
[2021-05-18] MEDS ORDERED: Albumin 25% 25 GM/100 ML BOT IVPB SCH (07:45)
[2021-05-18] MEDS: Albumin 25% 200 ML ONE (08:00)
[2021-05-18] MEDS ORDERED: EPINEPHrine 1 MG/10 ML Abboject SYRINGE ONE (09:00)
[2021-05-18] MEDS ORDERED: Iopamidol 370 76% 50 ML VIAL FS ONE (09:17)
[2021-05-18] MEDS ORDERED: Lidocaine 1% (PF) 30 ML VIAL ONE (09:28)
[2021-05-18] MEDS: Saccharomyces boulardii 250 MG CAP PO SCH (10:07)
[2021-05-18] MEDS: Hydrocortisone Sod Succ/PF 100 mg/2 ml Vial IVP SCH (10:07)
[2021-05-18] MEDS: Pantoprazole 40 MG VIAL IVP SCH (10:07)
[2021-05-18 10:44] VITALS: TEMP 97.9
[2021-05-18] MEDS ORDERED: Lorazepam 2 MG/ML VIAL SLOW IVP SCH (11:30)
[2021-05-18] MEDS ORDERED: Morphine 4 MG/ML VIAL SLOW IVP SCH (11:30)
== END 2021-05-18 11:45 | disposition expired | DRG 853 ==
LOC: ERS 23:57 → SURG B 05-06 01:44 → CCU 05-06 23:42
PROVIDERS: ADMIT Specialist; ATTEND Specialist
PROC: 0DB80ZZ Excision of Small Intestine, Open Approach (ICD-10-PCS; 2021-05-06)
PROC: 0DNW0ZZ Release Peritoneum, Open Approach (ICD-10-PCS; 2021-05-06)
PROC: 0DU907Z Supplement Duodenum with Autologous Tissue Substitute, Open Approach (ICD-10-PCS; 2021-05-06)
PROC: 02H633Z Insertion of Infusion Device into Right Atrium, Percutaneous Approach (ICD-10-PCS; 2021-05-06)
PROC: 0DHA0UZ Insertion of Feeding Device into Jejunum, Open Approach (ICD-10-PCS; 2021-05-06)
PROC: 0DH67UZ Insertion of Feeding Device into Stomach, Via Natural or Artificial Opening (ICD-10-PCS; 2021-05-06)
PROC: 30233N1 Transfusion of Nonautologous Red Blood Cells into Peripheral Vein, Percutaneous Approach (ICD-10-PCS; 2021-05-07)
PROC: 30233K1 Transfusion of Nonautologous Frozen Plasma into Peripheral Vein, Percutaneous Approach (ICD-10-PCS; 2021-05-09)
PROC: 3E0436Z Introduction of Nutritional Substance into Central Vein, Percutaneous Approach (ICD-10-PCS; 2021-05-09)
PROC: 30233R1 Transfusion of Nonautologous Platelets into Peripheral Vein, Percutaneous Approach (ICD-10-PCS; 2021-05-10)
PROC: 5A09457 Assistance with Respiratory Ventilation, 24-96 Consecutive Hours, Continuous Positive Airway Pressure (ICD-10-PCS; 2021-05-10)
PROC: 0W9G0ZZ Drainage of Peritoneal Cavity, Open Approach (ICD-10-PCS; 2021-05-11)
PROC: 0WJFXZZ Inspection of Abdominal Wall, External Approach (ICD-10-PCS; 2021-05-11)
PROC: 5A1955Z Respiratory Ventilation, Greater than 96 Consecutive Hours (ICD-10-PCS; 2021-05-11)
PROC: 30233M1 Transfusion of Nonautologous Plasma Cryoprecipitate into Peripheral Vein, Percutaneous Approach (ICD-10-PCS; 2021-05-12)
PROC: 06HY33Z Insertion of Infusion Device into Lower Vein, Percutaneous Approach (ICD-10-PCS; 2021-05-15)
PROC: 5A1D70Z Performance of Urinary Filtration, Intermittent, Less than 6 Hours Per Day (ICD-10-PCS; 2021-05-17)
PROC: 3E033XZ Introduction of Vasopressor into Peripheral Vein, Percutaneous Approach (ICD-10-PCS; principal; 2021-05-18)
PROC: B41D1ZZ Fluoroscopy of Aorta and Bilateral Lower Extremity Arteries using Low Osmolar Contrast (ICD-10-PCS; 2021-05-18)
DX: A41.9 Sepsis, unspecified organism (principal); K65.1 Peritoneal abscess; N17.0 Acute kidney failure with tubular necrosis; D65 Disseminated intravascular coagulation [defibrination syndrome]; J96.01 Acute respiratory failure with hypoxia; R65.21 Severe sepsis with septic shock; K85.90 Acute pancreatitis without necrosis or infection, unspecified; N13.30 Unspecified hydronephrosis; E46 Unspecified protein-calorie malnutrition; D62 Acute posthemorrhagic anemia; K91.841 Postprocedural hemorrhage of a digestive system organ or structure following other procedure; T81.31XA Disruption of external operation (surgical) wound, not elsewhere classified, initial encounter; K31.6 Fistula of stomach and duodenum; Z68.41 Body mass index [BMI] 40.0-44.9, adult; K91.72 Accidental puncture and laceration of a digestive system organ or structure during other procedure; Z66 Do not resuscitate; Z51.5 Encounter for palliative care; I10 Essential (primary) hypertension; J45.909 Unspecified asthma, uncomplicated; E87.6 Hypokalemia; J44.9 Chronic obstructive pulmonary disease, unspecified; E83.51 Hypocalcemia; D69.6 Thrombocytopenia, unspecified; Y83.8 Other surgical procedures as the cause of abnormal reaction of the patient, or of later complication, without mention of misadventure at the time of the procedure; E87.5 Hyperkalemia; R57.8 Other shock; Z79.51 Long term (current) use of inhaled steroids; Z79.899 Other long term (current) drug therapy; Z78.1 Physical restraint status; K22.8 Other specified diseases of esophagus; Z87.891 Personal history of nicotine dependence; Z90.710 Acquired absence of both cervix and uterus; Z90.81 Acquired absence of spleen; Z98.890 Other specified postprocedural states
CPT/HCPCS: 36245; 36415; 36416; 36430; 36600; 51702; 71045; 74176; 75625; 75726; 76775; 76942; 80048; 80053; 81001; 82040; 82150; 82247; 82533; 82550; 82570; 82805; 83605; 83690; 83735; 84100; 84156; 84300; 84540; 85014; 85018; 85025; 85049; 85300; 85362; 85379; 85384; 85610; 85730; 86704; 86706; 86803; 86850; 86900; 86901; 87340; 88307; 94002; 94003; 94640; 94660; 96365; 96366; 96375; C1751; C9113; J0171; J1450; J1642; J1650; J1720; J1815; J1940; J2001; J2248; J2250; J2270; J2370; J2405; J2543; J2597; J2704; J3010; J3475; J3480; J3490; J7050; J7070; J7611; J7620; J7626; P9012; P9016; P9035; P9045; P9047; P9059; Q0162; Q9967; Q9968